=== PATIENT | female | born 1945 | race Caucasian/White ===

== ENCOUNTER → 2017-03-22 | Outpatient (CLI) | payer OTHER ==
[~2017-03-22] MED LIST: ASPI-113 PO; ATEN-173 PO; CLB/200 PO; ENAL1TAB31 PO; FLAX100025 PO; HCTZ PO; HYDR-1838 PO; METF1000 PO; MONT1TAB3 PO; MULT-845 PO; OMEG1360 PO; PROBCAP8 PO; TAPE1TAB9 PO; [UNRECOGNIZED DRUG - OTHER] PO
[2017-03-22 14:12] LABS: SYNOVIAL FLUID APPEARANCE HAZY; SYNOVIAL FLUID COLOR YELLOW; SYNOVIAL FLUID MONONUC RELAT 55.3 %; SYNOVIAL FLUID POLYNUC RELAT 44.7 %
== END | disposition home or self-care (01) ==
LOC: C.LAB 11:59
DX: M16.11 Unilateral primary osteoarthritis, right hip (principal)

== ENCOUNTER 2017-05-30 04:59 | Day surgery (SDC) | payer OTHER ==
[2017-05-08 15:17] VITALS: BMI 34.0
--- NOTE | 2017-05-08 16:09 | PAT Medication Instructions ---
Service Date May 08, 2017. Current Home Medication List Aspirin (Aspirin Ec), 81 MG PO QPM Atenolol (Tenormin), 25 MG PO QAM Coconut Oil (Coconut Oil Organic), 1 TAB PO BID Coenzyme Q10 (Ubidecarenone) (Coq10), 1 TAB PO QAM Enalapril Maleate (Vasotec), 20 MG PO QAM Hydrochlorothiazide (Hydrochlorothiazide), 12.5 MG PO QAM Metformin HCl (Metformin HCl), 2 TAB PO BID Multiple Vitamins W/ Minerals (Centrum Silver Adult 50+), 1 TAB PO QAM Naproxen (Aleve), 220 MG PO DAILY PRN for Pain Vanzant-3 Fatty Acids (Fish Oil), 1 CAP PO BID Pravastatin (Pravachol ), 20 MG PO HS Probiotic Product (Probiotic Pearls), 1 CAP PO QAM Sertraline (Zoloft), 1.5 TAB PO QAM Specialty Vitamins Products (Green Source), 1 TAB PO QAM Medication Instructions For Your Scheduled Surgery - Check with surgeon for instructions: Naproxen (Aleve), 220 MG PO DAILY PRN for Pain Aspirin (Aspirin Ec), 81 MG PO QPM - Hold the following medications 2 weeks prior to surgery: Specialty Vitamins Products (Green Source), 1 TAB PO QAM Vanzant-3 Fatty Acids (Fish Oil), 1 CAP PO BID Coconut Oil (Coconut Oil Organic), 1 TAB PO BID Coenzyme Q10 (Ubidecarenone) (Coq10), 1 TAB PO QAM - Hold the following medications 48 hours prior to surgery: Metformin HCl (Metformin HCl), 2 TAB PO BID - Hold the following medications the morning of surgery: Probiotic Product (Probiotic Pearls), 1 CAP PO QAM Hydrochlorothiazide (Hydrochlorothiazide), 12.5 MG PO QAM Enalapril Maleate (Vasotec), 20 MG PO QAM Multiple Vitamins W/ Minerals (Centrum Silver Adult 50+), 1 TAB PO QAM - Take the following medications the morning of surgery with a sip of water: Sertraline (Zoloft), 1.5 TAB PO QAM Atenolol (Tenormin), 25 MG PO QAM - Take the following medications as scheduled the night before surgery: Pravastatin (Pravachol ), 20 MG PO HS If you have any questions please call us at [phone] or [phone] or [phone]
[2017-05-08 16:25] LABS: BASO % 0.3 %; BASO ABS # 0.03 K/uL (0-0.2); COMPLETE YES; EOS % 4.7 %; HEMATOCRIT 34.6 % (37-47); IG% 0.6 %; LYMPH % 21.8 %; LYMPH ABS # 2.05 K/uL (1.2-3.4); MEAN CELL VOLUME 96.1 fL (80-100); MEAN CORPUSCULAR HEMOGLOBIN 31.4 pg (25-34); MEAN CORPUSCULAR HGB CONC 32.7 g/dl (32-36); MEAN PLATELET VOLUME 8.8 fL (7.4-10.4); MONO % 8.4 %; NEUT % 64.2 %; PLATELET COUNT 273 K/uL (130-400); WHITE BLOOD COUNT 9.42 K/uL (4.8-10.8)
[2017-05-08 16:37] LABS: INR 0.9 (0.9-1.1); PROTHROMBIN TIME (PATIENT) 9.7 SECONDS (9.0-12.0)
[2017-05-08 16:37] LABS: URINE APPEARANCE CLEAR (CLEAR); URINE BILIRUBIN NEG (NEG); URINE COLOR YELLOW; URINE NITRITE NEG (NEG); UROBILINOGEN NEG (NEG); ZZUR CULT IF INDIC CLEAN CATCH NO
[2017-05-08 16:43] LABS: BUN/CREATININE RATIO 14.4 (10-20); CREATININE 1.06 mg/dl (0.60-1.20); POTASSIUM 3.6 mmol/L (3.5-5.1)
--- NOTE | 2017-05-08 16:50 | DIAGNOSTIC IMAGING REPORT ---
TWO VIEW CHEST CLINICAL HISTORY: Preoperative examination. FINDINGS: PA and lateral chest radiographs are compared to study dated 07/09/2013. The cardiomediastinal silhouette is unremarkable. The lungs and pleural spaces are clear. Biapical scarring is observed. There is no pneumothorax. The skeletal structures are osteopenic. Degenerative change is noted in the thoracic spine. IMPRESSION: No active disease in the chest. Electronically signed by: London Srinivasan M.D. 05/08/2017 4:48 PM Dictated Date/Time: 05/08/2017 4:40 PM
[2017-05-08 16:53] LABS: MANUAL MICROSCOPIC REQUIRED? NO; REVIEW REQ? NO
--- NOTE | 2017-05-29 09:45 | HISTORY & PHYSICAL EXAMINATION ---
DATE OF ADMISSION: 05/30/2017 CHIEF COMPLAINT: Right knee pain. HISTORY OF PRESENT ILLNESS: The patient is a 71-year-old female who had a right total knee arthroplasty approximately 3-1/2 years ago by another physician. She was recently referred to us for evaluation of ongoing right knee pain and disability. X-rays were essentially negative. She has had blood work, a knee aspiration, and a bone scan, which are essentially negative. She is now scheduled for right knee arthroscopy and debridement of hypertrophic scar. PAST MEDICAL HISTORY: Hypertension, hypercholesterolemia, type 2 diabetes, and osteoarthritis. PAST SURGICAL HISTORY: Knee replacement as above and hysterectomy. MEDICATIONS: Hydrochlorothiazide 12.5 mg daily, atenolol daily, Zoloft daily, metformin 500 mg twice daily, enalapril daily, pravastatin daily, aspirin 81 mg daily, fish oil daily, and coconut oil daily. ALLERGIES: No known drug allergies. SOCIAL HISTORY AND REVIEW OF SYSTEMS: Noncontributory. PHYSICAL EXAMINATION: GENERAL: Well-nourished and well-developed elderly female, who appears her stated age. HEENT: Normocephalic and atraumatic. Extraocular movements intact. Oropharynx is pink and moist. NECK: Supple without adenopathy. LUNGS: Clear to auscultation bilaterally. HEART: Regular rate and rhythm. ABDOMEN: Soft, nontender, and nondistended. EXTREMITIES: The upper extremities are within normal limits. The right knee has a neutral alignment. She has a well-healed midline scar from her previous arthroplasty. Her range of motion is from 0-120 degrees. X-RAYS: X-rays were reviewed. She has a Perez & Nephew type total knee in place. It appears well aligned and well fixed on all views. She had a bone scan, which was negative for evidence of infection and loosening. Her sed rate and CRP were mildly elevated, but her knee aspiration was negative. Cell count normal. ASSESSMENT: Right knee pain, status post previous knee arthroplasty. PLAN: Risks versus benefits were discussed. Consent was obtained. We will proceed with right knee arthroscopy and debridement of hypertrophic scar as indicated.
[~2017-05-30] VITALS: Ht 160 cm; Wt 88.5 kg
[~2017-05-30 04:59] MED LIST changes: -ASPI-113 PO; +ASPI81TA28 PO; -CLB/200 PO; +COCO1CAP PO; +COEN100C7 PO; -FLAX100025 PO; +GLC500 PO; -HCTZ PO; -HYDR-1838 PO; +HYDR25TA5 PO; -METF1000 PO; -MONT1TAB3 PO; +NAPR1TAB9 PO; +PRAV20TA PO; +SERT50TA PO; +SPECTAB PO; -TAPE1TAB9 PO; -[UNRECOGNIZED DRUG - OTHER] PO
[2017-05-30 05:29] VITALS: BP 129/76; PULSE 58; TEMP 37; O2SAT 98; Ht 160 cm; Wt 88.5 kg
[2017-05-30] MEDS ORDERED: CEFAZOLIN 2000MG IV PUSH 10 ML IV SCH (06:00)
[2017-05-30] MEDS ORDERED: LACTATED RINGER'S 1000ML 1,000 ML IV SCH (06:00)
[2017-05-30] MEDS ORDERED: BUPIVACAINE 0.25% 30 ML VIAL ONE (06:18)
[2017-05-30] MEDS ORDERED: BUPIVACAINE 0.5 % 5 MG/1 ML PF 10ML VIAL ONE (06:18)
[2017-05-30] MEDS ORDERED: MIDAZOLAM HCL 1 MG/ML 2ML VIAL ONE (06:33)
[2017-05-30] MEDS ORDERED: DEXAMETHASONE SOD INJ 4 MG/ML VIAL ONE (06:33)
[2017-05-30] MEDS ORDERED: FENTANYL CITRATE INJ 50 MCG/1 ML 2 ML VIAL ONE (06:33)
[2017-05-30] MEDS ORDERED: LIDOCAINE HCL 2% 2 ML VIAL (20MG/ML) ONE (06:33)
[2017-05-30] MEDS ORDERED: PROPOFOL IV EMULSION 10 MG/ML 20 ML VIAL IV ONE ×2 (06:33→07:30)
[2017-05-30] MEDS ORDERED: ONDANSETRON INJ 2 MG/ML 2 ML VIAL ONE (06:33)
[2017-05-30] MEDS ORDERED: BUPIVACAINE/EPINEPHRINE 0.5% MPF 1:200,000 30 ML VIAL ONE (06:56)
--- NOTE | 2017-05-30 06:59 | History & Physical Bridge Note ---
H&P Re-Evaluation Bridge Note: I have examined the patient, reviewed the History & Physical and in the interval since the performance of the History & Physical I have noted the following changes of clinical significance: No changes noted
[2017-05-30] MEDS ORDERED: ATROPINE SULFATE 0.1 MG/ML 5ML SYR IV PRN (07:15)
[2017-05-30] MEDS ORDERED: FENTANYL CITRATE INJ 50 MCG/1 ML 2 ML VIAL IV PRN (07:15)
[2017-05-30] MEDS ORDERED: HYDROmorphone INJ 1 MG/ML SYR IV PRN (07:15)
[2017-05-30] MEDS ORDERED: EpHEDrine SULFATE INJ 50 MG/ML AMP IV PRN (07:15)
[2017-05-30] MEDS ORDERED: ONDANSETRON INJ 2 MG/ML 2 ML VIAL IV PRN (07:15)
[2017-05-30] MEDS ORDERED: SODIUM CHLORIDE 0.9% 1000ML 1,000 ML IV SCH (07:17)
[2017-05-30] MEDS ORDERED: HYDR-5688 PO (07:20)
--- NOTE | 2017-05-30 07:21 | Discharge Instructions ---
Discharge Instructions Date of Service May 30, 2017. Visit Reason for Visit: Right Knee Arthrofibrosis Discharge Discharge Diagnosis / Problem: Right knee arthrofibrosis Discharge Goals Goal(s): Decrease discomfort, Improve function Activity Recommendations Activity Limitations: as noted below Weightbearing Status: Right weightbearing (as tolerated) Anesthesia . Post Anesthesia Instructions: If you have had General Anesthesia or IV Sedation: * Do not drive today. * Resume driving when surgeon permits. * Do not make important decisions or sign legal documents today. * Call surgeon for: 1. Temperature elevations greater than 101 degrees F. 2. Uncontrollable pain. 3. Excessive bleeding. 4. Persistent nausea and vomiting. 5. Medication intolerance (nausea, vomiting or rash). * For nausea and vomiting use only clear liquids such as: tea, soda, bouillon until nausea subsides, then gradually increase diet as tolerated. * If you have any concerns or questions, call your surgeon's office. If physician is unavailable and it is an emergency, call 911 or go to the nearest emergency room. . Instructions / Follow-Up Instructions / Follow-Up ACTIVITY RECOMMENDATIONS: * You may walk on the leg with or without crutches as comfort permits. * Bending of the knee should start at once. * Do not shower for 48 hours following surgery. SPECIAL CARE INSTRUCTIONS: * You may cleanse the skin adjacent to the small wounds with soap and water at the time of the first dressing change. * The application of an ice bag to the front and sides of the knee will decrease swelling and discomfort for the first 48 hours. * The small incisions may be sore and develop bruising. This bruising does not require any special care. SPECIAL PRECAUTIONS: * If you experience unusual pain unrelieved by prescriptions, temperature elevation (100 degrees F. or above) or progressive swelling or bleeding, you should contact our office at for further evaluation. * You may have been prescribed pain medication. If you experience nausea and/or fine skin rash, discontinue this medication and contact our office at for an alternate medication. DRESSING: * Dressing should be comfortable and absorb any leakage of fluid and/or blood. * The dressing may become moist or bloodstained. * Dressing may be removed 48 hours after surgery and bandaids placed over the small surgical incisions. If can be removed sooner if it becomes very soiled or loose. * Bandaids may be used over next several days as needed and can be discontinued when there is not further drainage from the wounds. FOLLOW UP VISIT: If appointment is not already scheduled: Please call [facility] to make a follow-up appointment for your surgery at . Diet Recommendations Recommended Home Diet: resume previous diet Pending Studies Studies pending at discharge: no Medical Emergencies . Who to Call and When: Medical Emergencies: If at any time you feel your situation is an emergency, please call 911 immediately. . Non-Emergent Contact Non-Emergency issues call your: Surgeon Call Non-Emergent contact if: temperature is above 101.5, your pain is not controlled, wound has increased drainage, wound has increased redness . . "Provider Documentation" section prepared by Clifford Cardona PA-C. . [facility] Drug Monitoring Program Search Results: patient reviewed within database, no issues identified
[2017-05-30] MEDS ORDERED: HYDROCODONE/ACETAMOPHEN 5/325MG TAB PO PRN (07:30)
[2017-05-30] MEDS ORDERED: OXYCODONE/ACETAMINOPHEN 5-325 TAB PO PRN (07:30)
--- NOTE | 2017-05-30 07:49 | [facility] Post Operative Brief Note ---
Immediate Operative Summary Operative Date May 30, 2017. Pre-Operative Diagnosis Right knee pain status post total knee arthroplasty Post-Operative Diagnosis right knee hypertrophic scar status post right total knee arthroplasty Procedure(s) Performed Right Knee Arthroscopic Excision of a Hypertropic Scar -status post Right Total Knee Arthroplasty Surgeon Dr. Rojas Tongue Trimmer Surgeon(s) none Estimated Blood Loss 10ml Findings hypertrophic scar right total knee Specimens none per surgeon Disposition Recovery Room / PACU
--- NOTE | 2017-05-30 08:02 | OPERATIVE REPORT ---
DATE OF OPERATION: 05/30/2017 PREOPERATIVE DIAGNOSIS: Painful right total knee. POSTOPERATIVE DIAGNOSIS: Hypertrophic scar, right total knee. PROCEDURE: Excision of hypertrophic scar, right total knee. SURGEON: Dr. Derrick Rojas. ANESTHESIA: General. COMPLICATIONS: None. DESCRIPTION OF PROCEDURE: Following induction of adequate general anesthesia, the patient's right leg was prepped and draped in usual sterile manner. Limb was exsanguinated with elevation and the tourniquet was inflated to 350 mmHg. The anterolateral portal was used for insertion of the arthroscope. Intraarticular elements were identified. The patella appeared to track normally; however, there was a significant amount of hypertrophic scar about the patella and suprapatellar pouch. This was noted for later debridement. A medial portal was established and there was found to be soft tissue positioned such that it was being pinched between the femoral and tibial components along the medial joint line. This was debrided using a 5.5 mm incisor blade. Next, the intercondylar notch was inspected and the post was found to be intact. A portion of the fat pad was debrided. The knee was brought to extension where significant hypertrophic scar both in the area of the suprapatellar pouch as well as about the patella was debrided. The lateral gutter was without significant hypertrophic scar. There being no additional arthroscopically amenable pathology, the arthroscope was removed. The knee was drained of excess fluid. Each arthroscopic portal was injected with 10 mL of 0.5% Marcaine with epinephrine. Wounds were closed using 4-0 nylon simple sutures. A sterile dressing of Xeroform, 4 x 4's, sterile Webril and double length Holger was applied. The patient tolerated the procedure well. I attest to the content of the Intraoperative Record and any orders documented therein. Any exception s are noted below.
--- NOTE | 2017-05-30 08:30 | Anesthesiology Progress Note ---
Anesthesia Post Op Note Date & Time May 30, 2017 at 08:30 Vital Signs Pain Intensity: 0 Vital Signs Past 12 Hours Date Time Temp Pulse Resp B/P (MAP) Pulse Ox O2 Delivery O2 Flow Rate FiO2 05/30/17 08:25 36.8 63 16 123/62 97 Room Air 05/30/17 08:15 68 16 117/63 98 Room Air 05/30/17 08:05 67 16 117/63 98 Oxymask 10 05/30/17 07:55 65 16 114/64 98 Oxymask 10 05/30/17 07:46 36. 65 16 123/66 99 Oxymask 10 05/30/17 05:29 37 58 20 129/76 (93) 98 Room Air Notes Mental Status: alert / awake / arousable, participated in evaluation Pt Amnestic to Procedure: Yes Nausea / Vomiting: adequately controlled Pain: adequately controlled Airway Patency, RR, SpO2: stable & adequate BP & HR: stable & adequate Hydration State: stable & adequate Anesthetic Complications: no major complications apparent
[2017-05-30 08:35] VITALS: BP 116/53; PULSE 77; TEMP 36.7; O2SAT 96
[2017-05-30 09:05] VITALS: BP 119/51; PULSE 68; O2SAT 96
[2017-05-30 09:35] VITALS: BP 131/57; PULSE 68; TEMP 36.9; O2SAT 97
== END 2017-05-30 10:35 | disposition home or self-care (01) ==
LOC: C.ACU 04:59
DX: L91.0 Hypertrophic scar (principal); Z96.651 Presence of right artificial knee joint; I10 Essential (primary) hypertension; E11.9 Type 2 diabetes mellitus without complications; E66.9 Obesity, unspecified; E78.00 Pure hypercholesterolemia, unspecified; Z79.899 Other long term (current) drug therapy; F41.9 Anxiety disorder, unspecified; F32.9 Major depressive disorder, single episode, unspecified; Z79.82 Long term (current) use of aspirin; Z90.710 Acquired absence of both cervix and uterus; Z68.34 Body mass index [BMI] 34.0-34.9, adult; Z87.891 Personal history of nicotine dependence; Z98.890 Other specified postprocedural states

== ENCOUNTER 2018-08-25 05:38 | Inpatient (IN) ==
--- NOTE | 2018-08-15 15:57 | PAT Medication Instructions ---
Medication Instructions Date of Service August 15, 2018 Home Medications B12 Injections 1 dose MONTHLY PRN Hydrocodone/Apap 5 - 325 mg PO UD PRN aspirin [Aspir-81] 81 mg PO HS atenolol 25 mg PO QAM cyclobenzaprine 5 mg PO BID PRN enalapril maleate 10 mg PO QAM fluticasone 1 spray INTRANASAL DAILY hydrochlorothiazide 25 mg PO QAM magnesium 250 mg PO QAM meloxicamm 15 mg PO QAM metformin 2 tab PO BID multivitamin 1 tab-cap PO QAM omega 4-nyj-din-fish oil [Fish Oil] 1 cap PO BID pravastatin 20 mg PO QPM sertraline 1.5 tab PO QAM Trulicity 1 injection subcut once weekly (Saturday) Continue as directed B12 Injections 1 dose MONTHLY PRN Trulicity 1 injection subcut once weekly (Saturday) ASK your surgeon for instructions meloxicam 15 mg PO QAM STOP taking 2 weeks before surgery omega 4-ctm-bai-fish oil [Fish Oil] 1 cap PO BID If surgery is within 2 weeks, stop taking as soon as possible. DO NOT take the morning of surgery enalapril maleate 10 mg PO QAM cyclobenzaprine 5 mg PO BID PRN hydrochlorothiazide 25 mg PO QAM magnesium 250 mg PO QAM multivitamin 1 tab-cap PO QAM metformin 2 tab PO BID Take morning of surgery With a small sip of water, OTHERWISE NOTHING TO EAT OR DRINK AFTER MIDNIGHT: Hydrocodone/Apap 5 - 325 mg PO UD PRN (if needed, may be taken up to four hours before surgery) atenolol 25 mg PO QAM fluticasone 1 spray INTRANASAL DAILY sertraline 1.5 tab PO QAM Take evening before surgery Hydrocodone/Apap 5 - 325 mg PO UD PRN (if needed) aspirin [Aspir-81] 81 mg PO HS cyclobenzaprine 5 mg PO BID PRN (if needed) metformin 2 tab PO BID pravastatin 20 mg PO QPM Other Notes If you have any questions please call us at [phone] or [phone] or [phone] or [phone]
--- NOTE | 2018-08-18 14:53 | Anesthesiology Consultation ---
Date of Service August 18, 2018 Assessment & Plan (1) Encounter for pre-operative examination: Plan: Routine cardiology visit 03/12/2018: "Abnormal stress test in 2013. Could be false positive. No anginal symptoms. Hypertension is well controlled, stable." HPI notes patient can climb a flight of stairs without difficulty, toward in [place] and walked a couple of miles without difficulty. She is to follow-up with them as needed. H/O DIFFICULT INTUBATION BSG AM DOS Chart Review Chart Review: Acceptable Risk for Surgery and Patient seen in Pre Admission Testing Teaching & Discussion Instructed NPO after midnight before surgery, except medications with 15 cc of water. Medication instructions provided according to the PAT guidelines. History Surgery Operation Date: 08/25/18 11:00 Proposed Procedures p Right Total Hip Arthroplasty - Derrick Rojas MD Height/Weight Height: 5 ft 3.5 in Weight: 83.915 kg Allergies Allergy/AdvReac Type Severity Reaction Status Date / Time No Known Allergies Allergy Verified 08/15/18 14:10 Medications Home Medications Medication Instructions Recorded Confirmed Last Taken B12 Injections 1 dose MONTHLY PRN 08/15/18 08/15/18 08/12/18 Hydrocodone/Apap 5 - 325 mg PO UD PRN 08/15/18 08/15/18 Unknown aspirin [Aspir-81] 81 mg PO HS 08/15/18 08/15/18 08/14/18 atenolol 25 mg PO QAM 08/15/18 08/15/18 08/15/18 cyclobenzaprine 5 mg PO BID PRN 08/15/18 08/15/18 08/15/18 enalapril maleate 10 mg PO QAM 08/15/18 08/15/18 08/15/18 fluticasone 1 spray INTRANASAL DAILY 08/15/18 08/15/18 08/15/18 hydrochlorothiazide 25 mg PO QAM 08/15/18 08/15/18 08/15/18 magnesium 250 mg PO QAM 08/15/18 08/15/18 08/15/18 meloxicam 15 mg PO QAM 08/15/18 08/15/18 08/15/18 metformin 2 tab PO BID 08/15/18 08/15/18 08/15/18 [id number]-vit K 1 tab-cap PO QAM 08/15/18 08/15/18 08/15/18 [Multi For Her] omega 4-exu-gop-fish oil [Fish Oil] 1 cap PO BID 08/15/18 08/15/18 08/15/18 pravastatin 20 mg PO QPM 08/15/18 08/15/18 08/14/18 sertraline 1.5 tab PO QAM 08/15/18 08/15/18 08/15/18 dulaglutide [Trulicity] 1 unit SUBCUT 08/18/18 Unknown Past Medical History Medical History Anemia "SLIGHT" DUE TO LOW B12 Anxiety Arthritis Diabetes A1C 7.0% 08/18/18 Difficult airway for intubation H/O GLIDESCOPE #4 with hysterectomy at [facility] (records scanned in). Fatty liver MENTIONED AFTER AN ULTRASOUND "LIVER ENZYMES ARE ALWAYS NORMAL" Hiatal hernia History of elevated antinuclear antibody (NARESH) History of kidney disease STAGE 2 History of neck problems NECK FOLLOWS CHIROPRACTOR FOR. POOR CERVICAL ROM. Hyperlipidemia Hypertension Past Family History Family History Mother Family history of AML (acute myeloid leukemia) Grandfather (Paternal) Family history of breast cancer Past Surgical History Surgical History History of arthroscopy of right knee History of colonoscopy History of hysterectomy History of sebaceous cyst REMOVED FOREHEAD History of surgical procedure on mouth LOWER LIP SKIN GROWTH REMOVED (INTERNAL LIP) History of total right knee replacement Past Anesthesia History Difficult Airway (h/o Glidescope #4 with hysterectomy) and No Family Hx of Anesthesia Complications R knee scope [facility] 2017 LMA #4, no issues noted. History of PONV No Motion Sickness Screening History of Motion Sickness: No Social History Smoking Status: Former smoker tobacco type: cigarettes Smoking cigarettes per day: QUIT MANY YEARS AGO Do You Dip or Chew Tobacco: No Hx Alcohol Use: Yes Alcohol type: wine alcohol intake frequency: a few times a week Alcohol Intake Frequency Comment: "SOCIAL" Hx Substance Use: No Exercise / Class Metabolic Activity III < 4 Walking/Shop/Light housework (using walker and cane at home, currently much more limited since stopping Mobic for surgery. Denies CP or SOB with ambulation.) Review of Systems Pt denies any recent chest pain, shortness of breath, palpitations, cough, fever or URI. Physical Exam Vital Signs BP: 100/65 P: 75bpm SPO2: 96% RA T: 98.3 F R: 16 ENMT Mouth: + dental restorations (few caps); no chipped teeth and no loose teeth Thyromental Distance: > or= 3.5 Finger Breadths (4) Mallampati Class: II Neck + thick neck and + limited neck extension (mildly limited extension) Respiratory normal respiratory effort Auscultation: lungs clear to auscultation bilaterally Cardiovascular Rate/Rhythm: regular rate and regular rhythm Heart Sounds: no murmur Vessels: no carotid bruit Extremities: no edema Testing Electrocardiogram Date: 08/18/18 Findings: + NSR @ (74) iRBBB. Chest X-Ray Date: 08/18/18 Findings: + NAD Echocardiogram Date: 02/11/14 EF: 72% The examination is adequate for the referrel indication. LV wall motion is normal. RV systolic function is normal. LV diastolic function normal. Mild AV sclerosis is present. Mild TR. No pulmonary HTN. Stress Test Date: 07/23/13 Type: DSE Dobutamine induced segmental wall motion abnormality. EKG changes and symptoms may suggest myocardial ischemia. Global LV systolic function is normal. Laboratory Results 08/18/18 15:16 08/18/18 15:16 Blood Type A Positive 08/18/18 15:16 Antibody Screen NEGATIVE 08/18/18 15:16 PT 9.7 Seconds (9.0-12.0) 08/18/18 15:16 INR 1.0 (0.9-1.1) 08/18/18 15:16 APTT 25.9 Seconds (21.0-31.0) 08/18/18 15:16 Hemoglobin A1c 7.0 % (4.5-5.6) H 08/18/18 15:16 Urine Color Yellow 08/18/18 Unknown Urine Appearance Clear (Clear) 08/18/18 Unknown Urine pH 5.0 (4.5-7.5) 08/18/18 Unknown Ur Specific [place] 1.021 (1.000-1.030) 08/18/18 Unknown Urine Protein Negative (Negative) 08/18/18 Unknown Urine Glucose (UA) Negative (Negative) 08/18/18 Unknown Urine Ketones Negative (Negative) 08/18/18 Unknown Urine Nitrite Negative (Negative) 08/18/18 Unknown Ur Leukocyte Esterase Negative (Negative) 08/18/18 Unknown 08/18/18 Unknown Urine Culture - Preliminary Urine,Clean Catch Pin-point growth present, reincubating.
--- NOTE | 2018-08-18 15:51 | XRay Report ---
XR chest Pre-admission PA/Lat CLINICAL HISTORY: Preoperative evaluation. COMPARISON STUDY: Chest radiograph May 08, 2017. FINDINGS: Lung volumes are normal. There is no pneumothorax or pleural effusion. There is no consolid ation or evidence for pulmonary edema. Cardiac size is normal. Mediastinal contours are normal. The a ppearance of the chest is unchanged. IMPRESSION: No acute cardiopulmonary findings. Electronically signed by: Ray Patel M.D. 08/18/2018 3:49 PM
[2018-08-18 15:53] LABS: Appearance Urine Clear (Clear); Bilirubin Urine Negative (Negative); Color Urine Yellow; Glucose Urine UA Negative (Negative); Ketones Urine Negative (Negative); Leukocyte Esterase Urine Negative (Negative); Nitrite Urine Negative (Negative); Protein Urine Negative (Negative); Specific Gravity Urine 1.021 (1.000-1.030); Urobilinogen Urine Negative (Negative)
[2018-08-18 15:59] LABS: Albumin Level 3.6 gm/dl (3.4-5.0); BUN Creatinine Ratio 15.2 (10-20); Calcium 8.9 mg/dl (8.5-10.1); Creatinine Clr Calc Pharmacy 55.2 ml/min; Est GFR (African American) 68.1; Est GFR (Non-African American) 58.8; Partial Thromboplastin Time 25.9 Seconds (21.0-31.0); Potassium 4.1 mmol/L (3.5-5.1); Prothrombin Time 9.7 Seconds (9.0-12.0)
[2018-08-18 16:11] LABS: Basophils # (auto) 0.04 K/uL (0-0.2); Basophils % (auto) 0.4 %; Eosinophils # (auto) 0.28 K/uL (0-0.5); Hematocrit (blood only) 35.6 % (37-47); Hemoglobin 11.7 g/dL (12.0-16.0); Immature Granulocytes # (auto) 0.02 K/uL (0.00-0.02); Immature Granulocytes % (auto) 0.2 %; Lymphocytes # (auto) 1.82 K/uL (1.2-3.4); Lymphocytes % (auto) 19.6 %; Mean Corpuscular Hgb Conc 32.9 g/dL (32-36); Mean Corpuscular Volume 95.4 fL (80-100); Mean Platelet Volume 9.5 fL (7.4-10.4); Monocytes # (auto) 0.69 K/uL (0.11-0.59); Monocytes % (auto) 7.4 %; Neutrophils # (auto) 6.44 K/uL (1.4-6.5); Neutrophils % (auto) 69.4 %; Platelet Count 229 K/uL (130-400); RDW Standard Deviation 44.9 fL (36.4-46.3); Red Blood Count 3.73 M/uL (4.2-5.4); White Blood Count 9.29 K/uL (4.8-10.8)
[2018-08-19 05:58] LABS: Estimated Average Glucose 154 mg/dl
--- NOTE | 2018-08-22 10:02 | History and Physical Report ---
DATE OF ADMISSION: 08/25/2018 CHIEF COMPLAINT: Right hip pain. HISTORY OF PRESENT ILLNESS: The patient is a 73-year-old female with known osteoarthritis about her right hip. She has had several intra-articular corticosteroid injections with some relief, but her recent x-rays showed severe advancement of osteoarthritis with complete loss of joint space and the patient now scheduled for right hip arthroplasty. PAST MEDICAL HISTORY: Type 2 diabetes, fatty liver, essential hypertension, depression, anemia with vitamin B12 deficiency. PAST SURGICAL HISTORY: Hysterectomy, knee replacement, breast surgery. MEDICATIONS: Flexeril 5 mg 2 times daily p.r.n., hydrochlorothiazide 25 mg daily, Singulair 10 mg daily, Trulicity injection as directed, Flonase nasal spray daily, Zoloft 50 mg one-half tablets daily, metformin 500 mg 2 tablets twice daily, pravastatin 20 mg at bedtime, Tenormin 25 mg daily, Vasotec 10 mg daily, meloxicam 7.5 mg daily, omega-3 fatty acids 1000 mg daily, Coenzyme Q10 daily, probiotic daily, aspirin 81 mg daily, coconut oil daily, multivitamin daily, buspirone 15 mg twice daily p.r.n. ALLERGIES: No known drug allergies. SOCIAL HISTORY AND REVIEW OF SYSTEMS: Noncontributory. PHYSICAL EXAMINATION: GENERAL: Well-nourished, well-developed elderly female who appears her stated age. HEENT: Normocephalic, atraumatic. Extraocular movements intact, oropharynx pink and moist. NECK: Supple without adenopathy. LUNGS: Clear to auscultation bilaterally. HEART: Regular rate and rhythm. ABDOMEN: Soft, nontender, nondistended. EXTREMITIES: The upper extremities are within normal limits. The right hip demonstrates limited range of motion. There is limitation of active and passive internal/external rotation with pain at end range. X-RAYS: X-rays were reviewed. She has severe osteoarthritis about the right hip with complete loss of the joint space. ASSESSMENT: Right hip degenerative joint disease. PLAN: Risks versus benefits were discussed, consent was obtained. The patient's primary care physician is Yelitza Urias PA-C. Will proceed with right total hip arthroplasty as indicated.
[2018-08-25] MEDS ORDERED: METOCLOPRAMIDE HCL 10 MG TABLET PO SCH (06:00)
[2018-08-25] MEDS ORDERED: CEFAZOLIN 2000MG 2,000 MG/15 ML SYR IV SCH (06:00)
[2018-08-25] MEDS ORDERED: dexAMETHasone 4 MG TAB PO SCH (06:00)
[2018-08-25] MEDS ORDERED: TRANEXAMIC ACID 1,000 MG **IV Pre-op IV SCH (06:00)
[2018-08-25] MEDS ORDERED: ACETAMINOPHEN 500 MG TAB PO SCH ×2 (06:00→14:00)
[2018-08-25] MEDS ORDERED: GABAPENTIN 300 MG PO SCH (06:00)
[2018-08-25] MEDS ORDERED: CeleBREX 200 MG CAP PO SCH (06:00)
[2018-08-25] MEDS ORDERED: ROPIVACAINE 0.5% HCL/PF 150 MG, BUPIVACAINE 0.5% MPF 30 ML, EPINEPHrine 30MG/30ML (OR U... INFIL SCH (06:00)
[2018-08-25] MEDS ORDERED: FAMOTIDINE 20 MG TAB PO SCH (06:00)
[2018-08-25] MEDS ORDERED: BUPIVACAINE/EPINEPHRINE 0.5% MPF 1:200,000 30 ML VIAL ONE (06:24)
[2018-08-25] MEDS ORDERED: DEXAMETHASONE SOD INJ 4 MG/ML VIAL ONE ×2 (06:24→08:01)
[2018-08-25] MEDS ORDERED: BUPIVACAINE 0.5 % 5 MG/1 ML PF 10ML VIAL ONE (06:24)
[2018-08-25] MEDS ORDERED: TRANEXAMIC ACID 1,000 MG **IV Intra-op IV SCH (06:30)
[2018-08-25] MEDS: LR 500ML BOLUS, THEN 15ML/HR IV SCH ×3 (06:31→18:21)
[2018-08-25] MEDS ORDERED: ORTHO JOINT ANESTHETIC ONE (06:56)
[2018-08-25] MEDS ORDERED: BACITRACIN INJ 50,000 UNIT VIAL ONE (06:56)
[2018-08-25] MEDS ORDERED: POVIDONE-IODINE OP SOLN 30 ML BTL ONE (06:56)
--- NOTE | 2018-08-25 07:00 | History & Physical Bridge Note ---
Date of Service August 25, 2018 History & Physical Bridge Note I have examined the patient, reviewed the History & Physical and in the interval since the performance of the History & Physical I have noted the following changes of clinical significance: no changes noted
[2018-08-25] MEDS ORDERED: fentaNYL citrate 100 MCG/2 ML VIAL ONE (07:01)
[2018-08-25] MEDS ORDERED: MIDAZOLAM HCL 1 MG/ML 2ML VIAL ONE ×2 (07:01→07:58)
[2018-08-25] MEDS ORDERED: ONDANSETRON INJ 2 MG/ML 2 ML VIAL IV PRN ×2 (07:02→10:27)
[2018-08-25] MEDS ORDERED: ATROPINE SULFATE 0.1 MG/ML 10ML SYR IV PRN (07:02)
[2018-08-25] MEDS ORDERED: fentaNYL citrate 100 MCG/2 ML VIAL IV PRN (07:02)
[2018-08-25] MEDS ORDERED: PHENYLEPHRINE 100MCG/ML 5ML SYR IV PRN (07:02)
[2018-08-25] MEDS ORDERED: ePHEDrine sulfate 50 MG/ML AMP IV PRN (07:02)
[2018-08-25] MEDS ORDERED: HYDROmorphone INJ 1 MG/ML SYRINGE IV PRN ×2 (07:02→10:27)
[2018-08-25] MEDS ORDERED: MEPERIDINE HCL 25 MG/ML CARP IV PRN (07:02)
[2018-08-25] MEDS ORDERED: LABETALOL HCL IV 5 MG/ML 20ML IV PRN (07:02)
[2018-08-25] MEDS ORDERED: ONDANSETRON INJ 2 MG/ML 2 ML VIAL ONE (08:01)
[2018-08-25] MEDS ORDERED: PROPOFOL IV EMULSION 10 MG/ML 20 ML VIAL IV ONE (08:01)
[2018-08-25] MEDS ORDERED: LIDOCAINE HCL 2% 2 ML VIAL/AMP(20MG/ML) INFIL ONE (08:01)
--- NOTE | 2018-08-25 08:42 | Operative Report ---
Post Operative Report Pre & Post Diagnosis DJD right hip Operation Date: 08/25/18 07:30 <No data on this case meets the specified criteria> Procedure DJD right hip Operation Date: 08/25/18 07:30 <No data on this case meets the specified criteria> Surgeon Derrick Rojas MD Vocal Music Instructor Dulce Estimated Blood Loss 100 Findings Consistent with Post-Op Diagnosis Specimens Femoral head Complications none Disposition Accompanied Patient To Recovery: No Disposition: Recovery Room Indications Hip pain Description of Procedure Patient was placed in the left lateral decubitus position and the right hip was prepped and draped in usual sterile manner. A Shamika Langenbeck incision was made to gain access to the hip subtenons tissue sharply dissected which causes hemostasis. Fascia was incised throughout the length wound and the short external rotators were divided from the posterior aspect of the femur using a artery. Piriformis was tagged with a #1 Vicryl. A T capsulotomy incision was made after gaining hemostasis and the hip was dislocated. The femoral neck was osteotomized at the appropriate level using the oscillating saw. The femoral head was removed. Attention was turned to the acetabulum with fibrous labrum and capsule removed. Sequential reamings were taken up to a size 52 which gave good exposure to subchondral bone. A 52 mm shell was impacted in position was held using single cancellous bone screw. The elevated posterior wall liner was impacted in position. Next attention was turned to the femur where a box osteotome was used to gain access to the femoral canal. A canal finder was utilized and sequential aspirins were taken up to a size #2 which gave good fit and fill. Trial reduction was carried out in size -2.5 with 127 neck length was chosen size to be used. The trial was removed the hip was irrigated and the final component was impacted in the position. It was relocated was found to be quite stable and the short external rotators were repaired to the greater trochanter using #1 Vicryl. Hip injection periarticular was utilized. Betadine soap was utilized. Fascia was closed using #1 Vicryl over Hemovac drain. Subcutaneous tissue was closed using 0 Dexon and the skin was closed was applied. Sterile dressing of Adaptic 4 x 4's ABDs foam tape was applied. Patient tolerated well. Mr. Clark was utilized for portion of the case including positioning prepping draping surgical assistance wound closure and dressing application. I attest to the content of the Intraoperative Record and any orders documented therein. Any exceptions are noted below.
--- NOTE | 2018-08-25 10:00 | Anesthesiology Progress Note ---
Date of Service August 25, 2018 Anesthesia Post Procedure Vital Signs Vital Signs: Temp Pulse Pulse Resp BP BP Pulse Ox 08/25/18 09:55 74 22 105/63 99 08/25/18 09:45 73 14 106/54 L 99 08/25/18 09:35 73 15 109/63 99 08/25/18 09:25 73 15 126/59 L 100 08/25/18 09:15 74 12 109/54 L 100 08/25/18 09:06 36.4 C L 75 23 114/61 98 08/25/18 06:33 36.8 C 69 20 126/78 98 Pain Intensity Right Leg: Pain Intensity: 0 Notes Mental Status: alert / awake / arousable Patient Amnestic to Procedure: Yes Nausea / Vomiting: adequately controlled Pain: adequately controlled Airway Patency, RR, SpO2: stable & adequate BP & HR: stable & adequate Hydration State: stable & adequate Neuraxial Anesthesia: was administered and sensory block is resolving Anesthetic Complications: no major complications apparent and Pt Satisfied with anesthetic care
--- NOTE | 2018-08-25 10:00 | XRay Report ---
SINGLE VIEW PELVIS; SINGLE VIEW RIGHT HIP CLINICAL HISTORY: Postoperative examination. FINDINGS: An AP portable view of the hips and pelvis with a crosstable lateral portable view of the r ight hip are obtained. A bipolar right hip arthroplasty is in near-anatomic alignment. A single corti jeny lag screw transfixes the acetabular cup. No acute fracture is identified. There are expected post operative changes overlying the right hip including subcutaneous gas, a surgical drain, and soft tiss ue swelling. Moderate arthritic changes noted in the left hip. IMPRESSION: Expected postoperative findings status post right hip arthroplasty. No acute fracture is seen. Electronically signed by: London Srinivasan M.D. 08/25/2018 9:59 AM
[2018-08-25] MEDS ORDERED: OXYCODONE HCL IR 5 MG TAB (IMMEDIATE RELEASE) PO PRN (10:27)
[2018-08-25] MEDS ORDERED: MAGNESIUM HYDROXIDE SUSP 30 ML UDC PO PRN (10:27)
[2018-08-25] MEDS ORDERED: METOCLOPRAMIDE HCL INJ 5 MG/ML 2 ML VIAL IV PRN (10:27)
[2018-08-25] MEDS ORDERED: ALUMINUM/MAGNESIUM SUSP 30 ML UDC PO PRN (10:27)
[2018-08-25] MEDS ORDERED: NALOXONE HCL 0.4 MG/1 ML VIAL/CARP IV PRN (10:27)
[2018-08-25] MEDS ORDERED: BISACODYL 10 MG SUPP PR PRN (10:27)
[2018-08-25] MEDS: SODIUM CHLORIDE 0.9% 1000ML 1,000 ML IV SCH ×2 (11:00→21:29)
[2018-08-25] MEDS: KETOROLAC TROMETHAMINE 15 MG/ML VIAL IV SCH ×3 (11:00→22:21)
[2018-08-25] MEDS ORDERED: PHARMACY GLYCEMIC MGMT CONSULT PRN (11:08)
[2018-08-25] MEDS ORDERED: LANTUS PER UNIT CHARGE SQ ONE (11:30)
[2018-08-25] MEDS: INSULIN ASPART 100 UNITS/ML 3 ML PEN SC SCH ×4 (13:27→23:57)
[2018-08-25] MEDS: CEFAZOLIN 2000MG 2,000 MG/15 ML SYR IV SCH ×2 (14:35→22:21)
--- NOTE | 2018-08-25 16:00 | Pharmacy Report ---
Glycemic Control Consultation - Date of Service August 25, 2018 - Scope Scope: Glycemic Pharmacist consulted by Clifford Cardona on [08-25-18] for glycemic control and to write orders per [facility] inpatient glycemic control protocol - Objective Weight: 85.474 kg Accuchecks BSG (last 24hrs): 08/25/18 08/25/18 08/25/18 06:22 09:29 12:32 POC Glucose 149 H 145 H 191 H HbA1c: Hemoglobin A1c 7.0 % (4.5-5.6) H 08/18/18 15:16 - Recent Pertinent Medications Outpatient Anti-diabetic Regimen: * Trulicity, metformin 1000 mg bid * A1c = [7.0] % [08/18/18] Risk Factors for Insulin Resistance: * Steroids: dxm 8 mg po, dxm 4 iv * Diet: T2DM - Assessment & Plan Assessment & Plan: ASSESSMENT: * Patient is a 73 year old female now s/p R hip arthroplasty. Type 2 diabetic managed at home on Trulicity and metformin. * PMH significant for B12 deficiency, anemia, htn, depression, fatty liver * Patient received steroids intraop - anticipate steroid induced hyperglycemia postop, therefore will utilize basal/bolus dosing PLAN FOR INPATIENT GLYCEMIC CONTROL: * Pt is maintained on oral antidiabetic agents as an outpatient * Oral agents are not recommended for inpatient use d/t drug interactions, changing PO intake, and difficulty titrating for acute hyper/hypoglycemia. ADA recommends re-initiating outpatient oral agents 1-2 days prior to discharge if/ when appropriate if they were held on admission. * Will hold oral agents for admission and utilize SQ basal bolus insulin regimen which is the recommended regimen for inpatient glycemic control. * Will initiate weight based insulin dosing for insulin mercy patient and titrate based on BSG trends. * Basal insulin * Lantus 15 units x 1 (~0.2 u/kg dose) * Bolus insulin * NovoLog per scale ACHS or Q6hrs while NPO - will add overnight checks for additional coverage * Goal Range: Low 110 mg/dL - High 140 mg/dL * Correction Factor: 20 mg/dL/unit * Nutritional / Prandial insulin per carb ratio of 1 unit per 6 grams CHO consumed * Please note that the plan above was derived based on current level of insulin resistance and hospital stress. These recommendations are appropriate for inpatient admission only. Plan of care upon discharge will need to be reassessed to avoid potential outpatient hypo/hyperglycemia. Thank you.
[2018-08-25] MEDS: FERROUS GLUCONATE 324 MG TAB PO SCH (17:06)
[2018-08-25] MEDS: ASCORBIC ACID 500 MG TAB PO SCH (17:06)
[2018-08-25] MEDS ORDERED: HYDROCODONE/ACETAMOPHEN 5/325MG TAB PO PRN (18:08)
[2018-08-25] MEDS: HYDROCODONE/ACETAMOPHEN 5/325MG TAB PO PRN (19:47)
[2018-08-25] MEDS: DOCUSATE SODIUM 100 MG CAP PO SCH (21:30)
[2018-08-25] MEDS: SENNA 8.6 MG TAB PO SCH (21:31)
[2018-08-25] MEDS: PRAVASTATIN SOD 20 MG TAB PO SCH (21:31)
[2018-08-25] MEDS: ASPIRIN 81 MG ECTAB PO SCH (21:32)
[2018-08-25] MEDS ORDERED: Nursing to Pharmacy Communication ONE (23:21)
[2018-08-26] MEDS ORDERED: INSULIN ASPART 100 UNITS/ML 3 ML PEN SC SCH
[2018-08-26] MEDS: INSULIN ASPART 100 UNITS/ML 3 ML PEN SC SCH ×5 (03:52→21:08)
[2018-08-26] MEDS: KETOROLAC TROMETHAMINE 15 MG/ML VIAL IV SCH (05:15)
[2018-08-26 06:06] LABS: Basophils # (auto) 0.01 K/uL (0-0.2); Basophils % (auto) 0.1 %; Eosinophils # (auto) 0.01 K/uL (0-0.5); Eosinophils % (auto) 0.1 %; Hematocrit (blood only) 28.8 % (37-47); Hemoglobin 9.5 g/dL (12.0-16.0); Immature Granulocytes # (auto) 0.04 K/uL (0.00-0.02); Immature Granulocytes % (auto) 0.3 %; Lymphocytes % (auto) 7.6 %; Mean Corpuscular Volume 93.8 fL (80-100); Mean Platelet Volume 8.9 fL (7.4-10.4); Monocytes # (auto) 0.97 K/uL (0.11-0.59); Monocytes % (auto) 7.4 %; Neutrophils # (auto) 11.12 K/uL (1.4-6.5); Neutrophils % (auto) 84.5 %; Platelet Count 243 K/uL (130-400); RDW Coefficient of Variation 12.9 % (11.5-14.5); RDW Standard Deviation 43.7 fL (36.4-46.3); Red Blood Count 3.07 M/uL (4.2-5.4); White Blood Count 13.15 K/uL (4.8-10.8)
[2018-08-26 06:37] LABS: BUN Creatinine Ratio 17.7 (10-20); Calcium 8.2 mg/dl (8.5-10.1); Est GFR (African American) 61.2; Est GFR (Non-African American) 52.8; Potassium 3.6 mmol/L (3.5-5.1)
--- NOTE | 2018-08-26 07:04 | Orthopedic Progress Note ---
Date of Service August 26, 2018 Assessment & Plan (1) Status post right hip replacement: 73 yo female stable POD #1 s/p right NIURKA 1. Med management 2. DVT prophylaxis- ASA, SCDs 3. PT/OT 4. D/C planning- home w/ HH Subjective Pt resting in bed, pain controlled, denies complaints Physical Exam 2 Vital Signs (Past 24 Hours): Last Vital Signs Temp 36.8 C 08/26/18 06:51 Pulse 74 08/26/18 06:51 Resp 18 08/26/18 06:51 BP 115/68 08/26/18 06:51 Pulse Ox 97 08/26/18 06:51 Physical Exam: Toes mobile, N/V/I, dressing and drain in place, thigh soft Results & Data Laboratory Results 08/26/18 08/26/18 08/26/18 Range/Units 05:48 05:48 03:50 WBC 13.15 H (4.8-10.8) K/uL RBC 3.07 L (4.2-5.4) M/uL Hgb 9.5 L (12.0-16.0) g/dL Hct 28.8 L (37-47) % MCV 93.8 (80-100) fL MCH 30.9 (25-34) pg MCHC 33.0 (32-36) g/dL RDW Std Deviation 43.7 (36.4-46.3) fL RDW Coeff of Lars 12.9 (11.5-14.5) % Plt Count 243 (130-400) K/uL MPV 8.9 (7.4-10.4) fL Immature Gran % (Auto) 0.3 % Neut % (Auto) 84.5 % Lymph % (Auto) 7.6 % [place] % (Auto) 7.4 % Eos % (Auto) 0.1 % Baso % (Auto) 0.1 % Immature Gran # (Auto) 0.04 H (0.00-0.02) K/uL Neut # (Auto) 11.12 H (1.4-6.5) K/uL Lymph # (Auto) 1.00 L (1.2-3.4) K/uL [place] # (Auto) 0.97 H (0.11-0.59) K/uL Eos # (Auto) 0.01 (0-0.5) K/uL Baso # (Auto) 0.01 (0-0.2) K/uL Sodium 138 (136-145) mmol/L Potassium 3.6 (3.5-5.1) mmol/L Chloride 103 (98-107) mmol/L Carbon Dioxide 26 (21-32) mmol/L Anion Gap 9.0 (3-11) BUN 19 H (7-18) mg/dl Creatinine 1.06 (0.6-1.2) mg/dl Est Cr Clr Drug Dosing 51.0 ml/min Est GFR ( Amer) 61.2 Est GFR (Non-Af Amer) 52.8 BUN/Creatinine Ratio 17.7 (10-20) Glucose 162 H (70-99) mg/dl POC Glucose 163 H (70-99) Calcium 8.2 L (8.5-10.1) mg/dl 08/25/18 08/25/18 08/25/18 Range/Units 23:54 20:54 17:13 WBC (4.8-10.8) K/uL RBC (4.2-5.4) M/uL Hgb (12.0-16.0) g/dL Hct (37-47) % MCV (80-100) fL MCH (25-34) pg MCHC (32-36) g/dL RDW Std Deviation (36.4-46.3) fL RDW Coeff of Lars (11.5-14.5) % Plt Count (130-400) K/uL MPV (7.4-10.4) fL Immature Gran % (Auto) % Neut % (Auto) % Lymph % (Auto) % [place] % (Auto) % Eos % (Auto) % Baso % (Auto) % Immature Gran # (Auto) (0.00-0.02) K/uL Neut # (Auto) (1.4-6.5) K/uL Lymph # (Auto) (1.2-3.4) K/uL [place] # (Auto) (0.11-0.59) K/uL Eos # (Auto) (0-0.5) K/uL Baso # (Auto) (0-0.2) K/uL Sodium (136-145) mmol/L Potassium (3.5-5.1) mmol/L Chloride (98-107) mmol/L Carbon Dioxide (21-32) mmol/L Anion Gap (3-11) BUN (7-18) mg/dl Creatinine (0.6-1.2) mg/dl Est Cr Clr Drug Dosing ml/min Est GFR ( Amer) Est GFR (Non-Af Amer) BUN/Creatinine Ratio (10-20) Glucose (70-99) mg/dl POC Glucose 169 H 213 H 172 H (70-99) Calcium (8.5-10.1) mg/dl 08/25/18 08/25/18 Range/Units 12:32 09:29 WBC (4.8-10.8) K/uL RBC (4.2-5.4) M/uL Hgb (12.0-16.0) g/dL Hct (37-47) % MCV (80-100) fL MCH (25-34) pg MCHC (32-36) g/dL RDW Std Deviation (36.4-46.3) fL RDW Coeff of Lars (11.5-14.5) % Plt Count (130-400) K/uL MPV (7.4-10.4) fL Immature Gran % (Auto) % Neut % (Auto) % Lymph % (Auto) % [place] % (Auto) % Eos % (Auto) % Baso % (Auto) % Immature Gran # (Auto) (0.00-0.02) K/uL Neut # (Auto) (1.4-6.5) K/uL Lymph # (Auto) (1.2-3.4) K/uL [place] # (Auto) (0.11-0.59) K/uL Eos # (Auto) (0-0.5) K/uL Baso # (Auto) (0-0.2) K/uL Sodium (136-145) mmol/L Potassium (3.5-5.1) mmol/L Chloride (98-107) mmol/L Carbon Dioxide (21-32) mmol/L Anion Gap (3-11) BUN (7-18) mg/dl Creatinine (0.6-1.2) mg/dl Est Cr Clr Drug Dosing ml/min Est GFR ( Amer) Est GFR (Non-Af Amer) BUN/Creatinine Ratio (10-20) Glucose (70-99) mg/dl POC Glucose 191 H 145 H (70-99) Calcium (8.5-10.1) mg/dl
[2018-08-26] MEDS ORDERED: dexAMETHasone 10 MG in SYRINGE 0 ML IV SCH (08:00)
[2018-08-26] MEDS ORDERED: INSULIN GLARGINE SOLOSTAR 100 UNITS/ML 3 ML PEN SC ONE (08:15)
[2018-08-26] MEDS: FERROUS GLUCONATE 324 MG TAB PO SCH ×2 (08:56→18:15)
[2018-08-26] MEDS: DOCUSATE SODIUM 100 MG CAP PO SCH ×2 (08:56→21:18)
[2018-08-26] MEDS: ASCORBIC ACID 500 MG TAB PO SCH ×2 (08:56→18:15)
[2018-08-26] MEDS: hydroCHLOROthiazide 25 MG TAB PO SCH (08:57)
[2018-08-26] MEDS: FLUTICASONE PROPIONATE NA SPR 16 GM BTL SCH (08:57)
[2018-08-26] MEDS: ASPIRIN 81 MG ECTAB PO SCH ×2 (08:57→21:19)
[2018-08-26] MEDS: MAGNESIUM OXIDE 400 MG TAB PO SCH (08:58)
[2018-08-26] MEDS: CEROVITE ADV FORMULA TAB PO SCH (08:58)
[2018-08-26] MEDS: ENALAPRIL MALEATE 10 MG TAB PO SCH (08:58)
[2018-08-26] MEDS: ATENOLOL 25 MG TABLET PO SCH (08:58)
[2018-08-26] MEDS: SERTRALINE HCL 50 MG TABLET PO SCH (08:59)
--- NOTE | 2018-08-26 09:42 | Pharmacy Report ---
Pharmacy Glycemic Short Note 2 - Date of Service August 26, 2018 - Glycemic Short BSG Results (Last 24 hours): 08/25/18 08/25/18 08/25/18 12:32 17:13 20:54 Glucose POC Glucose 191 H 172 H 213 H 08/25/18 08/26/18 08/26/18 23:54 03:50 05:48 Glucose 162 H POC Glucose 169 H 163 H 08/26/18 08:20 Glucose POC Glucose 143 H OUTPATIENT ANTIDIABETIC REGIMEN: * Trulicity * Metformin * A1c = 7% on 08/18/18 ASSESSMENT: * 73yo T2DM female with well controlled diabetes as an outpatient per recent A1c * Outpatient medications on hold for admission and utilizing weight based SQ basal bolus insulin dosing regimen with Lantus + NovoLog. * Pt will need high stress/weight based dosing for IV dexamethasone given this morning. * Will taper insulin after hyperglycmeic effects of dxm dissipate to prep for discharge. PLAN FOR INPATIENT GLYCEMIC CONTROL: * Hold outpatient oral diabetes medications * Basal insulin * High stress dosing /: Lantus 35 units (0.4 units/kg) SQ x 1 this morning for dexamethasone IV * Low stress dosing 2/: Lantus 18 units SQ daily starting tomorrow. * Bolus insulin * NovoLog per scale ACHS or Q6hrs while NPO * Goal Range: Low 110 mg/dL - High 140 mg/dL * Correction Factor: 20 mg/dL/unit * Nutritional / Prandial insulin per carb ratio of 1 unit per 6 grams CHO consumed PLAN FOR DISCHARGE: * A1c is in target range. No changes needed to outpatient regimen.
[2018-08-26] MEDS: HYDROCODONE/ACETAMOPHEN 5/325MG TAB PO PRN ×2 (17:20→21:26)
[2018-08-26] MEDS: SENNA 8.6 MG TAB PO SCH (21:18)
[2018-08-26] MEDS: PRAVASTATIN SOD 20 MG TAB PO SCH (21:18)
[2018-08-27] MEDS: INSULIN ASPART 100 UNITS/ML 3 ML PEN SC SCH ×3 (00:38→08:08)
--- NOTE | 2018-08-27 07:00 | Orthopedic Progress Note ---
Date of Service August 27, 2018 Assessment & Plan (1) Status post right hip replacement: 73 yo female stable POD #2 s/p right NIURKA 1. Med management 2. DVT prophylaxis- ASA, SCDs 3. PT/OT 4. D/C planning- home w/ HH Subjective Pt resting in bed, pain controlled, denies complaints Physical Exam 2 Vital Signs (Past 24 Hours): Last Vital Signs Temp 36.8 C 08/27/18 06:12 Pulse 73 08/27/18 06:12 Resp 18 08/27/18 06:12 BP 123/70 08/27/18 06:12 Pulse Ox 98 08/27/18 06:12 Physical Exam: Toes mobile, N/V/I, Silverlon dressing in place, thigh soft, calf nontender
[2018-08-27] MEDS: FERROUS GLUCONATE 324 MG TAB PO SCH (07:59)
[2018-08-27] MEDS: ASCORBIC ACID 500 MG TAB PO SCH (08:00)
[2018-08-27] MEDS: FLUTICASONE PROPIONATE NA SPR 16 GM BTL SCH (08:01)
[2018-08-27] MEDS: ASPIRIN 81 MG ECTAB PO SCH (08:01)
[2018-08-27] MEDS: DOCUSATE SODIUM 100 MG CAP PO SCH (08:01)
[2018-08-27] MEDS: hydroCHLOROthiazide 25 MG TAB PO SCH (08:02)
[2018-08-27] MEDS: ENALAPRIL MALEATE 10 MG TAB PO SCH (08:02)
[2018-08-27] MEDS: MAGNESIUM OXIDE 400 MG TAB PO SCH (08:02)
[2018-08-27] MEDS: SERTRALINE HCL 50 MG TABLET PO SCH (08:02)
[2018-08-27] MEDS: CEROVITE ADV FORMULA TAB PO SCH (08:02)
[2018-08-27] MEDS: ATENOLOL 25 MG TABLET PO SCH (08:02)
[2018-08-27] MEDS ORDERED: INSULIN GLARGINE SOLOSTAR 100 UNITS/ML 3 ML PEN SC SCH ×2 (09:00)
[2018-08-27] MEDS: HYDROCODONE/ACETAMOPHEN 5/325MG TAB PO PRN (11:01)
--- NOTE | 2018-09-03 13:06 | Discharge Summary ---
CHIEF COMPLAINT: Right hip pain. Please see complete history and physical examination. HOSPITAL COURSE: The patient underwent right total hip arthroplasty without complication. She tolerated the procedure well and was discharged to recovery room in stable condition. Her postoperative course was relatively uneventful. Her postoperative pain was really well controlled with a combination of spinal anesthesia, intraoperative joint injection, IV, and oral pain medications. She was started on aspirin for DVT prophylaxis. She also utilized RENÉE stockings and SCDs for additional prophylaxis. Her H and H was stable and did not require transfusion. Surgical drain was discontinued by postop day 2, surgical dressing was changed prior to discharge and will remain in place for approximately 7 days postoperative. She tolerated the postop physical therapy reasonably well where she was ambulating and transferring appropriately. She was observing all total hip precautions. She was discharged home on postoperative day 2. She will continue her physical therapy at home. She will continue her aspirin for DVT prophylaxis and follow up in our office in approximately 10-14 days for her initial postop evaluation.
== END 2018-08-27 12:05 | disposition home health service (06) | DRG 470 ==
LOC: ASU 05:38 → 3E 09:10

== ENCOUNTER 2019-03-04 06:02 | Inpatient (IN) ==
--- NOTE | 2019-02-25 16:51 | PAT Medication Instructions ---
Medication Instructions Date of Service February 25, 2019 Home Medications Multi For Her 1 tab-cap PO QAM atenolol 25 mg PO QAM cyclobenzaprine 5 mg PO BID PRN enalapril maleate 10 mg PO QAM fluticasone propionate 1 spray INTRANASAL DAILY hydrochlorothiazide 25 mg PO QAM meloxicam 15 mg PO QAM metformin 2 tab PO BID omega 9-isy-nbh-fish oil [Fish Oil] 1 cap PO BID pravastatin 20 mg PO QPM sertraline 100 mg PO QAM Trulicity 1 unit SUBCUT WK aspirin [Aspirin Low Dose] 81 mg PO QPM coQ10 (ubiquinol) 100 mg PO QPM cyanocobalamin (vitamin B-12) 100 mcg IM MONTHLY hydrocodone-acetaminophen [Palisade] 0.5 tab PO Q6 lactobacillus combination no.4 [Probiotic] 3,000 mmu cells PO BID potassium gluconate 550 mg PO QAM Continue as directed Trulicity 1 unit SUBCUT WK cyanocobalamin (vitamin B-12) 100 mcg IM MONTHLY ASK your surgeon for instructions meloxicam 15 mg PO QAM STOP taking 2 weeks before surgery If surgery is within 2 weeks, stop taking as soon as possible. omega 4-iad-gur-fish oil [Fish Oil] 1 cap PO BID coQ10 (ubiquinol) 100 mg PO QPM DO NOT take the morning of surgery Multi For Her 1 tab-cap PO QAM cyclobenzaprine 5 mg PO BID PRN enalapril maleate 10 mg PO QAM hydrochlorothiazide 25 mg PO QAM metformin 2 tab PO BID lactobacillus combination no.4 [Probiotic] 3,000 mmu cells PO BID potassium gluconate 550 mg PO QAM Take morning of surgery With a small sip of water, OTHERWISE NOTHING TO EAT OR DRINK AFTER MIDNIGHT: atenolol 25 mg PO QAM fluticasone propionate 1 spray INTRANASAL DAILY sertraline 100 mg PO QAM hydrocodone-acetaminophen [Palisade] 0.5 tab PO Q6 (if needed, may be taken up to four hours before surgery) Take evening before surgery cyclobenzaprine 5 mg PO BID PRN fluticasone propionate 1 spray INTRANASAL DAILY metformin 2 tab PO BID pravastatin 20 mg PO QPM aspirin [Aspirin Low Dose] 81 mg PO QPM hydrocodone-acetaminophen [Palisade] 0.5 tab PO Q6 (if needed) lactobacillus combination no.4 [Probiotic] 3,000 mmu cells PO BID Other Notes If you have any questions please call us at [phone] or [phone] or [phone] or [phone]
--- NOTE | 2019-02-26 09:47 | Anesthesiology Consultation ---
Date of Service February 26, 2019 Assessment & Plan (1) Encounter for pre-operative examination: CHECK BSG AM DOS Chart Review Chart Review: Acceptable Risk for Surgery and Patient seen in Pre Admission Testing Teaching & Discussion Instructed NPO after midnight before surgery, except medications with 15 cc of water. Medication instructions provided according to the PAT guidelines. History Surgery Operation Date: 03/04/19 10:25 Proposed Procedures p L2-L4 Decompression and Fusion with Spinal Cord Monitoring - Vern Rodney DO Height/Weight Height: 5 ft 3.5 in Weight: 86.5 kg Allergies Allergy/AdvReac Type Severity Reaction Status Date / Time No Known Allergies Allergy Verified 02/24/19 15:29 Medications Home Medications Medication Instructions Recorded Confirmed Last Taken Multi For Her 1 tab-cap PO QAM 08/15/18 02/24/19 08/24/18 09:00 atenolol 25 mg PO QAM 08/15/18 02/24/19 08/25/18 04:00 cyclobenzaprine 5 mg PO BID PRN 08/15/18 02/24/19 08/24/18 18:00 enalapril maleate 10 mg PO QAM 08/15/18 02/24/19 08/24/18 09:30 fluticasone propionate 1 spray INTRANASAL DAILY 08/15/18 02/24/19 08/24/18 14:00 hydrochlorothiazide 25 mg PO QAM 08/15/18 02/24/19 08/24/18 09:00 meloxicam 15 mg PO QAM 08/15/18 02/24/19 08/15/18 metformin 2 tab PO BID 08/15/18 02/24/19 08/24/18 18:00 omega 7-wkx-aks-fish oil [Fish Oil] 1 cap PO BID 08/15/18 02/24/19 08/15/18 pravastatin 20 mg PO QPM 08/15/18 02/24/19 08/24/18 18:00 sertraline 100 mg PO QAM 08/15/18 02/24/19 08/25/18 04:00 Trulicity 1 unit SUBCUT WK 08/18/18 02/24/19 08/24/18 16:00 aspirin [Aspirin Low Dose] 81 mg PO QPM 02/24/19 02/24/19 Unknown coQ10 (ubiquinol) 100 mg PO QPM 02/24/19 02/24/19 Unknown cyanocobalamin (vitamin B-12) 100 mcg IM MONTHLY 02/24/19 02/24/19 Unknown hydrocodone-acetaminophen [Baudette] 0.5 tab PO Q6 02/24/19 02/24/19 Unknown lactobacillus combination no.4 3,000 mmu cells PO BID 02/24/19 02/24/19 Unknown [Probiotic] potassium gluconate 550 mg PO QAM 02/24/19 02/24/19 Unknown Past Medical History Medical History Anxiety Depression Diabetes A1C 7.0% 08/18/18 Fatty liver INCIDENTAL FINDING ON ULTRASOUND, NORMAL LFTs Hiatal hernia History of elevated antinuclear antibody (NARESH) History of kidney disease STAGE 2 History of neck problems NECK FOLLOWS CHIROPRACTOR FOR. POOR CERVICAL ROM. Hyperlipidemia Hypertension Neuropathy Feet. Osteoarthritis Exercise / Class Metabolic Activity II 4-5 Yardwork/Stairs/Walk up hill (Denies CP or SOB with 1 FOS) Past Family History Family History Mother Family history of AML (acute myeloid leukemia) Grandfather (Paternal) Family history of breast cancer Father Family history of diabetes mellitus Family/Other Family history of diabetes mellitus Past Surgical History Surgical History Difficult airway for intubation H/O GLIDESCOPE #4 with hysterectomy at [facility] (records scanned in). History of arthroscopy of right knee History of colonoscopy History of hysterectomy History of sebaceous cyst REMOVED FOREHEAD History of surgical procedure on mouth LOWER LIP SKIN GROWTH REMOVED (INTERNAL LIP) History of total right hip replacement History of total right knee replacement Past Anesthesia History Difficult Airway (h/o Glidescope) and No Family Hx of Anesthesia Complications History of PONV No Hx of PONV and No Hx of Motion Sickness Social History Smoking Status: Former smoker tobacco type: cigarettes Smoking cigarettes per day: QUIT MANY YEARS AGO Do You Dip or Chew Tobacco: No Smoking End Date: Hx Alcohol Use: Yes Alcohol type: wine alcohol intake frequency: a few times a month Hx Substance Use: No Review of Systems Pt denies any recent chest pain, shortness of breath, palpitations, cough, fever or URI. Physical Exam Vital Signs BP: 115/73 P: 78bpm SPO2: 95% RA T: 98.0 F R: 16 ENMT Mouth: + dental restorations (10 crowns total); no chipped teeth and no loose teeth Thyromental Distance: > or= 3.5 Finger Breadths (3.5) Mallampati Class: II Neck normal visual inspection and + limited neck extension (mildly limited) Respiratory normal respiratory effort Auscultation: lungs clear to auscultation bilaterally Cardiovascular Rate/Rhythm: regular rate and regular rhythm Heart Sounds: no murmur Extremities: no edema Testing Laboratory Results PT 9.5 Seconds (9.0-12.0) 02/26/19 10:07 INR 0.9 (0.9-1.1) 02/26/19 10:07 APTT 24.8 Seconds (21.0-31.0) 02/26/19 10:07 Blood Type A Positive 02/26/19 10:07 Antibody Screen NEGATIVE 02/26/19 10:07 01/05/19 WBC: 9.85 H/H: 12.2/36.7 PLATELETS: 253 SODIUM: 136 POTASSIUM: 3.8 CHLORIDE: 95 CO2: 29 BUN: 15 CREATININE: 0.8 GLUCOSE: 161 UA and culture: negative for bacteria Electrocardiogram Date: 08/18/18 Findings: + NSR @ (74) iRBBB. No significant change from 2012 EKG. Chest X-Ray Date: 08/18/18 Findings: + NAD Echocardiogram Date: 02/11/14 EF: 72% The examination is adequate for the referrel indication. LV wall motion is normal. RV systolic function is normal. LV diastolic function normal. Mild AV sclerosis is present. Mild TR. No pulmonary HTN. Stress Test Date: 07/23/13 Type: DSE Dobutamine induced segmental wall motion abnormality. EKG changes and symptoms may suggest myocardial ischemia. Global LV systolic function is normal.
[2019-02-26 11:10] LABS: INR 0.9 (0.9-1.1); Partial Thromboplastin Ratio 0.9; Partial Thromboplastin Time 24.8 Seconds (21.0-31.0); Prothrombin Time 9.5 Seconds (9.0-12.0)
[~2019-03-04 06:02] MED LIST changes: -ASPI81TA28 PO; -ATEN-173 PO; +CEFAZOLIN 2000MG 2,000 MG/15 ML SYR IV SCH; -COCO1CAP PO; -COEN100C7 PO; -ENAL1TAB31 PO; -GLC500 PO; -HYDR25TA5 PO; +LR 15ML/HR IV SCH; -MULT-845 PO; -NAPR1TAB9 PO; -OMEG1360 PO; -PRAV20TA PO; -PROBCAP8 PO; -SERT50TA PO; -SPECTAB PO
[2019-03-04] MEDS ORDERED: ONDANSETRON INJ 2 MG/ML 2 ML VIAL ONE (07:02)
[2019-03-04] MEDS ORDERED: DEXAMETHASONE SOD INJ 4 MG/ML VIAL ONE (07:02)
[2019-03-04] MEDS ORDERED: LIDOCAINE HCL 2% 2 ML VIAL/AMP(20MG/ML) INFIL ONE (07:02)
[2019-03-04] MEDS ORDERED: PROPOFOL IV EMULSION 10 MG/ML 20 ML VIAL IV ONE (07:02)
[2019-03-04] MEDS ORDERED: ROCURONIUM BROMIDE 10 MG/ML 5 ML VIAL ONE (07:02)
[2019-03-04] MEDS ORDERED: SUCCINYLCHOLINE CHLORIDE 20 MG/ML 10 ML VIAL ONE (07:03)
[2019-03-04] MEDS ORDERED: HYDROmorphone INJ 2 MG/ML SYR/VIAL ONE (07:03)
[2019-03-04] MEDS ORDERED: BACITRACIN INJ 50,000 UNIT VIAL ONE (07:03)
[2019-03-04] MEDS ORDERED: BUPIVACAINE/EPINEPHRINE 0.5% MPF 1:200,000 30 ML VIAL ONE (07:03)
--- NOTE | 2019-03-04 07:28 | History & Physical Bridge Note ---
Date of Service March 04, 2019 History & Physical Bridge Note I have examined the patient, reviewed the History & Physical and in the interval since the performance of the History & Physical I have noted the following changes of clinical significance: no changes noted
--- NOTE | 2019-03-04 07:29 | History & Physical Report ---
Date of Service March 04, 2019 Assessment & Plan (1) Spinal stenosis, lumbar region with neurogenic claudication: L2-L4 decompression and fusion Present on Admission?: Yes History of Present Illness Chief Complaint: Back and bilateral leg pain Primary Care Provider: Yelitza Urias PA-C This is a 73-year-old female presents with chronic persistent back and bilateral leg pain. After failing extensive course of nonoperative care is here for surgical intervention. Allergies Allergy/AdvReac Type Severity Reaction Status Date / Time No Known Allergies Allergy Verified 03/04/19 06:30 Home Medications Home Medications Medication Instructions Recorded Confirmed Type Multi For Her 1 tab-cap PO QAM 08/15/18 03/04/19 History atenolol 25 mg PO QAM 08/15/18 03/04/19 History cyclobenzaprine 5 mg PO BID PRN 08/15/18 03/04/19 History enalapril maleate 10 mg PO QAM 08/15/18 03/04/19 History fluticasone propionate 1 spray INTRANASAL DAILY 08/15/18 03/04/19 History hydrochlorothiazide 25 mg PO QAM 08/15/18 03/04/19 History meloxicam 15 mg PO QAM 08/15/18 03/04/19 History metformin 2 tab PO BID 08/15/18 03/04/19 History omega 4-cxq-euz-fish oil [Fish Oil] 1 cap PO BID 08/15/18 03/04/19 History pravastatin 20 mg PO QPM 08/15/18 03/04/19 History sertraline 100 mg PO QAM 08/15/18 03/04/19 History Trulicity 1 unit SUBCUT WK 08/18/18 03/04/19 History aspirin [Aspirin Low Dose] 81 mg PO QPM 02/24/19 03/04/19 History coQ10 (ubiquinol) 100 mg PO QPM 02/24/19 03/04/19 History cyanocobalamin (vitamin B-12) 100 mcg IM MONTHLY 02/24/19 03/04/19 History hydrocodone-acetaminophen [[place]] 0.5 tab PO Q6 02/24/19 03/04/19 History lactobacillus combination no.4 3,000 mmu cells PO BID 02/24/19 03/04/19 History [Probiotic] potassium gluconate 550 mg PO QAM 02/24/19 03/04/19 History Past Med/Surg History Family History Mother Family history of AML (acute myeloid leukemia) Grandfather (Paternal) Family history of breast cancer Father Family history of diabetes mellitus Family/Other Family history of diabetes mellitus Social History Preferred Language: Spanish Communication Ability: Effective Content Production Specialist Required: No Beliefs That Will Affect Care: None Current Living Situation: Spouse Feels Safe at Home: Yes Smoking Status: Former smoker Tobacco Type: cigarettes ; Cigarettes Per Day: QUIT MANY YEARS AGO ; Do You Dip or Chew Tobacco: No ; Smoking End Date: ; Second Hand Exposure: No ; Hx Alcohol Use: Yes Alcohol type: wine Hx Substance Use: No Physical Exam Physical Exam: Patient is alert and oriented neurologically intact. Results & Data Vital Signs (Past 12 Hours) Vital Signs Temp Pulse Resp BP Pulse Ox 03/04/19 06:30 37.1 C 74 18 139/77 97
[2019-03-04] MEDS ORDERED: ONDANSETRON INJ 2 MG/ML 2 ML VIAL IV PRN ×2 (08:54→11:47)
[2019-03-04] MEDS ORDERED: PROMETHAZINE HCL 12.5 MG in SODIUM CHLORIDE 0.9% 50 ML IV PRN ×2 (08:54→11:47)
[2019-03-04] MEDS ORDERED: NALOXONE HCL 0.4 MG/1 ML VIAL/CARP IV PRN ×2 (08:54→11:47)
[2019-03-04] MEDS ORDERED: LABETALOL HCL IV 5 MG/ML 20ML IV PRN (08:54)
[2019-03-04] MEDS ORDERED: FLUMAZENIL 0.1 MG/1 ML 10 ML VIAL IV PRN (08:54)
[2019-03-04] MEDS ORDERED: ePHEDrine sulfate 50 MG/ML AMP IV PRN (08:54)
[2019-03-04] MEDS ORDERED: ATROPINE SULFATE 0.1 MG/ML 10ML SYR IV PRN (08:54)
[2019-03-04] MEDS ORDERED: HYDROmorphone INJ 1 MG/ML SYRINGE IV PRN (08:54)
[2019-03-04] MEDS ORDERED: GLYCOPYRROLATE 0.2 MG/ML VIAL ONE (09:40)
[2019-03-04] MEDS ORDERED: NEOSTIGMINE METHYLSULFATE 1 MG/ML 10ML VIAL ONE (09:40)
[2019-03-04] MEDS ORDERED: PHENYLEPHRINE 100MCG/ML 5ML SYR ONE (10:06)
[2019-03-04] MEDS ORDERED: ePHEDrine sulfate 50 MG/ML AMP ONE (10:06)
--- NOTE | 2019-03-04 10:15 | Operative Report ---
Post Operative Report Pre & Post Diagnosis Operation Date: 03/04/19 07:45 Pre-Op Diagnosis: Lumbar spinal stenosis with neurogenic claudication Post-Op Diagnosis: Same Procedure Operation Date: 03/04/19 07:45 Actual Procedures #1 lumbar decompression with bilateral medial facetectomies foraminotomies L1-L2 L2-3 L3-4. #2 posterior spinal fusion L2-3 L3-4. #3 placement posterior instrumentation L2-3 L3-4. #4 interbody fusion L3-4. #5 placement of peek cage 11 x 22 mm L3-4 per #6 placement of local autograft in the posterior lateral gutters. #7 placement infuse collagen sponge, master graft in the posterior lateral gutters and ostial amp and interbody space. Surgeon Vern Rodney, Agency Trainer None Estimated Blood Loss 350 Findings See Below Patient is 5 foot 3 inches tall weighing over 84 kg with a BMI in excess of 32. The patient's body habitus did create a marked increase in technical difficulty requiring her deepest retractors and longer Kerrisons to perform the decompression and fusion. This added at least 25% increase in operative time. Specimens None Description of Procedure Patient was met with identified and informed consent obtained. She was then taken to the operative suite underwent intubation placed in a prone position the William table on top of the Stu frame. All bony prominences well-padded eyes inspected to ensure no external pressure placed upon. This point the lumbar spine was prepped and draped in the normal sterile fashion. Sharp dissection with the assistance of Bovie cautery was performed down to and exposing the lamina and transverse processes of L2-L3-L4 bilaterally. From a caudal to cephalad fashion complete laminectomy of L3 L2 and partial laminectomy of L1 was performed including bilateral medial facetectomies foraminotomies addressing severe stenosis. Pedicle screws were then placed in L2-L3-L4 bilaterally with assistance of fluoroscopy and the appropriate size pascale placed. By way of a transforaminal approach and left the discectomy of L3-4 was performed endplates curetted to subcortical bleeding bone and a 11 x 22 mm peek cage filled with osteo-amp bone graft tapped in position. The rods were then locked in final position bilaterally. The transverse processes of L2-L3-L4 burred to subcortical bleeding bone. Infuse collagen sponge master graft local autograft placed in the posterior lateral gutters. 15 round JEN drain inserted. The incision was then closed with 1 Vicryl in the fascia 2-0 Vicryl substantially and 4 Monocryl for final skin closure. Steri-Strip sterile dressings placed. Patient will continue to PACU stable condition. Please note spinal cord monitoring was utilized that the procedure no changes noted. I attest to the content of the Intraoperative Record and any orders documented therein. Any exceptions are noted below.
--- NOTE | 2019-03-04 10:17 | Fluoroscopy Report ---
FL lumbar spine 2-3V CLINICAL HISTORY: L2-L4, DECOMP, FUSION COMPARISON STUDY: FLUOROSCOPY TIME: 27 seconds. NUMBER OF FLUOROSCOPIC IMAGES: 2 FINDINGS: 2 intraoperative fluoroscopic spot images are provided for interpretation. Given the limite d field of view, accurate numbering is difficult. There are postsurgical changes of interbody fusion, and 3 level posterior pedicle screw fixation. By history, the discectomy and interbody fusion is at the L3-4 level with the pedicle screws being present at the L2-L4 levels. IMPRESSION: Intraoperative fluoroscopic spot images as described above. Electronically signed by: Victoriano Mejia M.D. 03/04/2019 10:15 AM
[2019-03-04] MEDS ORDERED: DO NOT ADMINISTER PNEUMOCOCCAL VACCINE PRN (11:47)
[2019-03-04] MEDS ORDERED: MAGNESIUM HYDROXIDE SUSP 30 ML UDC PO PRN (11:47)
[2019-03-04] MEDS ORDERED: LORazepam 0.5 MG TAB PO PRN (11:47)
[2019-03-04] MEDS ORDERED: ONDANSETRON 4 MG TAB PO PRN (11:47)
[2019-03-04] MEDS ORDERED: METOCLOPRAMIDE HCL INJ 5 MG/ML 2 ML VIAL IV PRN (11:47)
[2019-03-04] MEDS ORDERED: DO NOT ADMINISTER FLU VACCINE PRN (11:47)
[2019-03-04] MEDS ORDERED: CYCLOBENZAPRINE HCL 5 MG TAB PO PRN (11:47)
[2019-03-04] MEDS ORDERED: SOD PHOSPHATE/SOD BIPHOSPHATE ENEMA 132 ML BTL PR PRN (11:47)
[2019-03-04] MEDS ORDERED: LORazepam 0.5 MG/1 ML VIAL IV PRN (11:47)
[2019-03-04] MEDS ORDERED: FAMOTIDINE 20 MG TAB PO PRN (11:47)
[2019-03-04] MEDS ORDERED: HYDROmorphone INJ 0.5 MG/0.5 ML SYR IV PRN (11:47)
[2019-03-04] MEDS ORDERED: ACETAMINOPHEN 500 MG TAB PO PRN (11:47)
[2019-03-04] MEDS ORDERED: BISACODYL 10 MG SUPP PR PRN (11:47)
[2019-03-04] MEDS ORDERED: ACETAMINOPHEN 1,000 MG/100 ML VIAL IV PRN (11:47)
[2019-03-04] MEDS ORDERED: ALUMINUM/MAGNESIUM SUSP 30 ML UDC PO PRN (11:47)
[2019-03-04] MEDS ORDERED: HYDROCODONE/ACETAMOPHEN 5/325MG TAB PO SCH (12:00)
--- NOTE | 2019-03-04 12:04 | Anesthesiology Progress Note ---
Date of Service March 04, 2019 Anesthesia Post Procedure Vital Signs Vital Signs: Temp Pulse Pulse Resp BP BP Pulse Ox 03/04/19 11:40 36.8 C 76 14 110/66 97 03/04/19 11:10 36.6 C 77 12 117/60 96 03/04/19 11:00 74 12 118/61 99 03/04/19 10:50 76 16 119/60 99 03/04/19 10:40 76 16 131/67 100 03/04/19 10:30 73 16 131/63 98 03/04/19 10:23 36.9 C 71 16 93/62 L 96 03/04/19 06:30 37.1 C 74 18 139/77 97 Pain Intensity Bilateral Leg: Pain Intensity: 4 Bilateral Buttock: Pain Intensity: 0 Back: Pain Intensity: 2 Transfer of Care Handoff Completed per policy Notes Mental Status: alert / awake / arousable Patient Amnestic to Procedure: Yes Nausea / Vomiting: adequately controlled Pain: adequately controlled Airway Patency, RR, SpO2: stable & adequate BP & HR: stable & adequate Hydration State: stable & adequate Anesthetic Complications: no major complications apparent
[2019-03-04] MEDS: SODIUM CHLORIDE 0.9% 1000ML 1,000 ML IV SCH ×2 (13:19→20:03)
[2019-03-04] MEDS: KETOROLAC TROMETHAMINE 15 MG/ML VIAL IV SCH ×2 (13:19→17:39)
--- NOTE | 2019-03-04 13:49 | Consultation ---
Date of Consultation March 04, 2019 Assessment & Plan (1) Status post lumbar surgery: Post op day# 0 S/P L2-L4 decompression and fusion by Dr Ronel RAMIREZ#350ml Postop doing well -pain management per ortho -wound management per ortho -PT/OT as appropriate -DVT prophylaxis per ortho -incentive spirometry -monitor H&H for acute blood loss anemia (2) Diabetes mellitus, type II: A1c: 6.5 on 12/03/18 Random glucose: 170 -Pt currently on clear liquid diet -Monitor BSGs -Hold Metformin, Trulicity -Novolog sliding scale per protocol (3) Hypertension: Current BP 114/63 -Continue atenolol -Hold enalapril and HCTZ and re-evaluate BP in am (4) Hyperlipidemia: -Continue statin (5) Anxiety: (6) Depression: -Continue sertraline (7) Chronic anemia: Hx B12 deficiency. Last IM injection one week ago, receives monthly Hgb Baseline ~12 -monitor H&H DVT Prophylaxis -SCDs per ortho Disposition per primary service [facility] Pt was seen and care coordinated with Dr Martinez. See addendum Pt will be followed by Dr Ash starting 03/05/19 Thank you for this consultation. We will follow the patient with you during their hospital stay. You can reach a member of the [facility] Hospitalist Team 11/02 via pager @ [phone]. Supervising Physician Co-Signing Physician Notes Attending addendum The patient was seen and examined in medical floor He is a status post back surgery Does not have any pain but drowsy from the mid effect of medications Denies any significant symptoms On examination No apparent distress at rest Blood pressure noted to be in the lower side lower 100s Chest-clear to auscultate bilaterally Heart -S1-S2, regular Abdomenbenign Extremitiestrace edema bilateral Labs and imaging studies reviewed Has diabetes type 2, hypertension, hyperlipidemia and LACIE Review with assessment and plan as outlined above by SAMI Pathak Dr. History of Present Illness Reason for Consultation: Post op medical management Attending Physician: Vern Rodney DO History of Present Illness Pt is 73 y/o F with PMH DM II, HTN, HLD, chronic anemia, fatty liver seen in post op medical consultation s/p L2-L4 decompression and fusion today by Dr Rodney. Post op pt denies any pain currently and reports still sleepy from anesthesia. Has Herrera cath in place. Tolerating liquids for lunch. Denies fever/chills, N/V/D, METCALF, dizziness, neck pain, CP, SOB, cough, sore throat, choking, abdominal pain, extremity edema, rashes. Allergies Allergy/AdvReac Type Severity Reaction Status Date / Time No Known Allergies Allergy Verified 03/04/19 06:30 Home Medications Home Medications Medication Instructions Recorded Confirmed Type Multi For Her 1 tab-cap PO QAM 08/15/18 03/04/19 History atenolol 25 mg PO QAM 08/15/18 03/04/19 History cyclobenzaprine 5 mg PO BID PRN 08/15/18 03/04/19 History enalapril maleate 10 mg PO QAM 08/15/18 03/04/19 History fluticasone propionate 1 spray INTRANASAL DAILY 08/15/18 03/04/19 History hydrochlorothiazide 25 mg PO QAM 08/15/18 03/04/19 History meloxicam 15 mg PO QAM 08/15/18 03/04/19 History metformin 2 tab PO BID 08/15/18 03/04/19 History omega 3-lhk-vho-fish oil [Fish Oil] 1 cap PO BID 08/15/18 03/04/19 History pravastatin 20 mg PO QPM 08/15/18 03/04/19 History sertraline 100 mg PO QAM 08/15/18 03/04/19 History Trulicity 1 unit SUBCUT WK 08/18/18 03/04/19 History aspirin [Aspirin Low Dose] 81 mg PO QPM 02/24/19 03/04/19 History coQ10 (ubiquinol) 100 mg PO QPM 02/24/19 03/04/19 History cyanocobalamin (vitamin B-12) 100 mcg IM MONTHLY 02/24/19 03/04/19 History hydrocodone-acetaminophen [[place]] 0.5 tab PO Q6 02/24/19 03/04/19 History lactobacillus combination no.4 3,000 mmu cells PO BID 02/24/19 03/04/19 History [Probiotic] potassium gluconate 550 mg PO QAM 02/24/19 03/04/19 History Patient History Medical History Chronic anemia (Chronic) Diabetes mellitus, type II (Chronic) Hyperlipidemia (Chronic) Hypertension (Chronic) Anxiety (Chronic) History of elevated antinuclear antibody (NARESH) (Chronic) Hiatal hernia (Chronic) History of kidney disease (Chronic) STAGE 2 Fatty liver (Chronic) INCIDENTAL FINDING ON ULTRASOUND, NORMAL LFTs History of neck problems (Chronic) NECK FOLLOWS CHIROPRACTOR FOR. POOR CERVICAL ROM. Depression (Chronic) Osteoarthritis (Chronic) Neuropathy (Chronic) Feet. Surgical History Difficult airway for intubation (Chronic) H/O GLIDESCOPE #4 with hysterectomy at [facility] (records scanned in). History of hysterectomy (Chronic) History of total right knee replacement (Chronic) History of arthroscopy of right knee (Chronic) History of sebaceous cyst (Chronic) REMOVED FOREHEAD History of surgical procedure on mouth (Chronic) LOWER LIP SKIN GROWTH REMOVED (INTERNAL LIP) History of colonoscopy (Chronic) History of total right hip replacement (Chronic) Family History Mother Family history of AML (acute myeloid leukemia) Grandfather (Paternal) Family history of breast cancer Father Family history of diabetes mellitus Family/Other Family history of diabetes mellitus Social History Preferred Language: Jordanian Communication Ability: Effective Insulator Technician Required: No Beliefs That Will Affect Care: None Current Living Situation: Spouse Feels Safe at Home: Yes Smoking Status: Former smoker Tobacco Type: cigarettes ; Cigarettes Per Day: QUIT MANY YEARS AGO ; Do You Dip or Chew Tobacco: No ; Smoking End Date: ; Second Hand Exposure: No ; Hx Alcohol Use: Yes Alcohol type: wine Hx Substance Use: No Review of Systems Review of Systems: All systems reviewed & are unremarkable except as noted in HPI & below Physical Exam Physical Exam: General: no distress, overweight Head: normocephalic, atraumatic Eyes: conjunctiva non-injected, anicteric ENT: normal inspection external ears, nose, mucous membranes moist Neck: supple, trachea midline Lungs: clear, no respiratory distress, no wheezing/rhonchi/rales CV: RRR, no murmur, no pretibial edema Abd: normal BS, soft, non-tender Ext: no cyanosis, no calf tenderness; bilateral pedal pushes and pulls intact, distal pulses intact Neuro: A&O x 3, no focal deficits noted, normal affect Skin: warm, dry Results & Data Vital Signs (Past 12 Hours) Vital Signs Temp Pulse Pulse Resp BP BP Pulse Ox 03/04/19 13:40 37 C 79 16 102/62 98 03/04/19 12:40 77 15 114/63 99 03/04/19 12:04 80 16 110/68 98 03/04/19 11:40 36.8 C 76 14 110/66 97 03/04/19 11:10 36.6 C 77 12 117/60 96 03/04/19 11:00 74 12 118/61 99 03/04/19 10:50 76 16 119/60 99 03/04/19 10:40 76 16 131/67 100 03/04/19 10:30 73 16 131/63 98 03/04/19 10:23 36.9 C 71 16 93/62 L 96 03/04/19 06:30 37.1 C 74 18 139/77 97
[2019-03-04] MEDS ORDERED: CARBOHYDRATES FOR HYPOGLYCEMIA PO PRN (14:04)
[2019-03-04] MEDS ORDERED: GLUCOSE 10 TABS/TUBE PO PRN (14:04)
[2019-03-04] MEDS ORDERED: GLUCOSE 40% GEL 15 GM TUBE PO PRN (14:04)
[2019-03-04] MEDS ORDERED: GLUCAGON FOR INJ 1 MG VIAL SQ PRN (14:04)
[2019-03-04] MEDS ORDERED: DEXTROSE 50% 50 ML SYRINGE IV PRN (14:04)
[2019-03-04] MEDS: CEFAZOLIN 2000MG 2,000 MG/15 ML SYR IV SCH (15:59)
[2019-03-04] MEDS: INSULIN ASPART 100 UNITS/ML 3 ML PEN SC SCH ×2 (18:34→21:27)
[2019-03-04] MEDS: PRAVASTATIN SOD 20 MG TAB PO SCH (20:05)
[2019-03-04] MEDS: DOCUSATE SODIUM/SENNA 50/8.6MG TAB PO SCH (20:05)
[2019-03-04] MEDS: LACTOBACILLUS ACIDOPHILUS (FLORANEX) TAB PO SCH (20:05)
[2019-03-04] MEDS: OMEGA-3 (PURIFIED FISH OIL) 1 GM CAP PO SCH (20:05)
[2019-03-04] MEDS: ASPIRIN 81 MG ECTAB PO SCH (20:05)
[2019-03-04] MEDS ORDERED: NON-FORMULARY MEDICATION (Coq10 (Ubiquinol) 100 MG) PO SCH (21:00)
[2019-03-04] MEDS: INSULIN GLARGINE SOLOSTAR 100 UNITS/ML 3 ML PEN SC SCH (21:27)
[2019-03-04] MEDS: OXYCODONE HCL IR 5 MG TAB (IMMEDIATE RELEASE) PO PRN (23:26)
[2019-03-05] MEDS: CEFAZOLIN 2000MG 2,000 MG/15 ML SYR IV SCH (00:29)
[2019-03-05] MEDS: KETOROLAC TROMETHAMINE 15 MG/ML VIAL IV SCH ×2 (00:29→05:59)
[2019-03-05] MEDS: SODIUM CHLORIDE 0.9% 1000ML 1,000 ML IV SCH (02:47)
[2019-03-05] MEDS: POLYETHYLENE (MIRALAX) 17 GM PACK PO SCH ×3 (05:57→18:46)
[2019-03-05 08:23] LABS: Basophils # (auto) 0.01 K/uL (0-0.2); Basophils % (auto) 0.1 %; Eosinophils # (auto) 0.08 K/uL (0-0.5); Eosinophils % (auto) 0.7 %; Hematocrit (blood only) 26.7 % (37-47); Hemoglobin 9.1 g/dL (12.0-16.0); Immature Granulocytes # (auto) 0.04 K/uL (0.00-0.02); Immature Granulocytes % (auto) 0.3 %; Lymphocytes # (auto) 1.56 K/uL (1.2-3.4); Lymphocytes % (auto) 12.9 %; Mean Corpuscular Hgb Conc 34.1 g/dL (32-36); Mean Corpuscular Volume 93.4 fL (80-100); Mean Platelet Volume 8.8 fL (7.4-10.4); Monocytes # (auto) 0.88 K/uL (0.11-0.59); Monocytes % (auto) 7.2 %; Neutrophils # (auto) 9.57 K/uL (1.4-6.5); Neutrophils % (auto) 78.8 %; Platelet Count 246 K/uL (130-400); RDW Coefficient of Variation 13.5 % (11.5-14.5); RDW Standard Deviation 45.3 fL (36.4-46.3); Red Blood Count 2.86 M/uL (4.2-5.4); White Blood Count 12.14 K/uL (4.8-10.8)
--- NOTE | 2019-03-05 08:24 | Orthopedic Progress Note ---
Date of Service March 05, 2019 Assessment & Plan (1) Spinal stenosis, lumbar region with neurogenic claudication: This time will initiate physical therapy advance her bowel regimen anticipate discharge home in the next few days. Present on Admission?: Yes Subjective Back pain is controlled leg symptoms improved. Physical Exam Physical Exam: Patient has good strength testing appears comfortable. Results & Data Vital Signs (Past 12 Hours) Vital Signs Temp Pulse Pulse Resp BP BP Pulse Ox 03/05/19 07:51 36.8 C 80 18 106/61 97 03/05/19 03:03 36.9 C 79 16 99/53 L 97 03/04/19 23:05 36.7 C 78 16 133/73 99
[2019-03-05] MEDS: INSULIN ASPART 100 UNITS/ML 3 ML PEN SC SCH ×4 (08:39→21:40)
[2019-03-05] MEDS: INSULIN GLARGINE SOLOSTAR 100 UNITS/ML 3 ML PEN SC SCH ×2 (08:39→21:41)
[2019-03-05] MEDS: FLUTICASONE PROPIONATE NA SPR 16 GM BTL SCH (08:40)
[2019-03-05] MEDS: CEROVITE ADV FORMULA TAB PO SCH (08:41)
[2019-03-05] MEDS: OMEGA-3 (PURIFIED FISH OIL) 1 GM CAP PO SCH ×2 (08:41→20:23)
[2019-03-05] MEDS: LACTOBACILLUS ACIDOPHILUS (FLORANEX) TAB PO SCH ×2 (08:41→20:24)
[2019-03-05] MEDS: ATENOLOL 25 MG TABLET PO SCH (08:41)
[2019-03-05] MEDS: SERTRALINE HCL 50 MG TABLET PO SCH (08:42)
[2019-03-05] MEDS: OXYCODONE HCL IR 5 MG TAB (IMMEDIATE RELEASE) PO PRN ×4 (08:45→20:23)
[2019-03-05 08:51] LABS: BUN Creatinine Ratio 12.8 (10-20); Calcium 7.8 mg/dl (8.5-10.1); Creatinine Clr Calc Pharmacy 59.6 ml/min; Est GFR (African American) 74.6; Est GFR (Non-African American) 64.3; Potassium 3.7 mmol/L (3.5-5.1)
[2019-03-05] MEDS ORDERED: hydroCHLOROthiazide 25 MG TAB PO SCH (09:00)
[2019-03-05] MEDS ORDERED: ENALAPRIL MALEATE 10 MG TAB PO SCH (09:00)
--- NOTE | 2019-03-05 10:34 | Hospitalist Progress Note ---
Date of Service March 05, 2019 Assessment & Plan (1) Status post lumbar surgery: Post op day# 1 S/P L2-L4 decompression and fusion by Dr Rodney EBL#350ml JEN drain output #340ml Postop doing well -pain management per ortho -wound management per ortho -PT/OT as appropriate -DVT prophylaxis per ortho -incentive spirometry -bowel regimen -Hgb: 9.1, was 9.5 post-op yesterday and 11.7 pre-op (2) Diabetes mellitus, type II: A1c: 6.5 on 12/03/18 BSGs 133-173 past 24 hours -Pt currently on clear liquid diet -Monitor BSGs -Hold Metformin, Trulicity -Novolog, Lantus sliding scale per protocol (3) Hypertension: SBP low 100's -Continue atenolol -Hold enalapril and HCTZ and re-evaluate tomorrow (4) Hyperlipidemia: -Continue statin (5) Anxiety: (6) Depression: -Continue sertraline (7) Chronic anemia: Hx B12 deficiency. Last IM injection one week ago, receives monthly Hgb Baseline ~12 -monitor H&H DVT Prophylaxis -SCDs per ortho Disposition per primary service [facility] [place] [facility] Pt was seen and care coordinated with Dr Ash. See addendum Supervising Physician Co-Signing Physician Notes Attending Addendum: care coordinated with LINDA Ray please refer to her notes for full details, I agree with her notes patient seen and examined, records reviewed by myself as well on exam, patient seen resting in bedside chair, comfortable ambulating with no problems has mild sore throat noticed cheeks to be red, feels somewhat flushed but improving no other symptoms VS noted and reviewed oriented x3, not in distress, speaks in sentences with no effort nor accessory muscle use normal rate, regular rhythm, no murmurs clear breath sounds bilaterally non distended, soft, nontender no bipedal edema, erythema, warmth no neuro deficits WBC 12.14 Hg 9.1 Crea 0.90 ASSESSMENT AND PLAN s/p Back Surgery stable overall after surgery monitor Hg Anemia likely Acute Blood Loss monitor Hg maintain above 8 Hypertension BP on the low normal side hold Enalapril/HCTZ continue Metoprolol other diagnoses and plan of care as per LINDA Ray notes Flaco Ash MD Subjective Pt seen and examined. Sitting up in bedside chair. Reports pain to back controlled. Denies leg pain, paresthesias or weakness. Reports last night throat was sore from intubation and was clearing throat and trying to cough to make it feel better and states this morning symptoms improved. Still has Herrera cath. Reports passing flatus, no BM yet. Denies fever/chills, diaphoresis, N/V/ METCALF, dizziness, dysphagia, CP, SOB, abdominal pain, extremity edema, rashes. Review of Systems Review of Systems: All systems reviewed & are unremarkable except as noted in HPI & below Physical Exam Physical Exam: General: no acute distress, overweight Head: normocephalic, atraumatic Eyes: conjunctiva non-injected, anicteric ENT: normal inspection external ears, nose, mucous membranes moist Neck: supple, trachea midline Lungs: clear, no respiratory distress, no wheezing/rhonchi/rales CV: RRR, no murmur, no pretibial edema Abd: normal BS, soft, non-tender Ext: no cyanosis, no calf tenderness; flexion and extension at knees intact b ilaterally, pedal pushes and pulls intact, distal pulses intact, sensation to light touch intact Neuro: A&O x 3, no focal deficits noted, normal affect Skin: warm, dry Results & Data Vital Signs (Past 12 Hours) Vital Signs Temp Pulse Pulse Resp BP BP Pulse Ox 03/05/19 07:51 36.8 C 80 18 106/61 97 03/05/19 03:03 36.9 C 79 16 99/53 L 97 03/04/19 23:05 36.7 C 78 16 133/73 99 Laboratory Results Short CBC 03/05/19 Range/Units 08:06 WBC 12.14 H (4.8-10.8) K/uL Hgb 9.1 L (12.0-16.0) g/dL Hct 26.7 L (37-47) % Plt Count 246 (130-400) K/uL BMP 03/05/19 08:06 Sodium 141 Potassium 3.7 Chloride 107 Carbon Dioxide 27 BUN 12 Creatinine 0.90 Glucose 127 H Calcium 7.8 L
[2019-03-05] MEDS: PRAVASTATIN SOD 20 MG TAB PO SCH (20:24)
[2019-03-05] MEDS: DOCUSATE SODIUM/SENNA 50/8.6MG TAB PO SCH (20:24)
[2019-03-05] MEDS: ASPIRIN 81 MG ECTAB PO SCH (20:24)
[2019-03-06] MEDS: OXYCODONE HCL IR 5 MG TAB (IMMEDIATE RELEASE) PO PRN ×3 (06:06→17:39)
[2019-03-06 06:26] LABS: Hematocrit (blood only) 29.4 % (37-47); Hemoglobin 9.8 g/dL (12.0-16.0); Mean Corpuscular Hgb Conc 33.3 g/dL (32-36); Mean Corpuscular Volume 93.6 fL (80-100); Mean Platelet Volume 8.8 fL (7.4-10.4); Nucleated RBC # (auto) 0.02 K/uL (0-0); Nucleated RBC % (auto) 0.1 %; Platelet Count 253 K/uL (130-400); RDW Coefficient of Variation 13.8 % (11.5-14.5); RDW Standard Deviation 47.1 fL (36.4-46.3); Red Blood Count 3.14 M/uL (4.2-5.4); White Blood Count 13.46 K/uL (4.8-10.8)
[2019-03-06 06:58] LABS: BUN Creatinine Ratio 10.6 (10-20); Creatinine Clr Calc Pharmacy 61.6 ml/min; Est GFR (African American) 77.7; Potassium 3.7 mmol/L (3.5-5.1)
[2019-03-06] MEDS: ATENOLOL 25 MG TABLET PO SCH (07:30)
[2019-03-06] MEDS: FLUTICASONE PROPIONATE NA SPR 16 GM BTL SCH (07:31)
[2019-03-06] MEDS: OMEGA-3 (PURIFIED FISH OIL) 1 GM CAP PO SCH ×2 (07:31→20:57)
[2019-03-06] MEDS: SERTRALINE HCL 50 MG TABLET PO SCH (07:31)
[2019-03-06] MEDS: CEROVITE ADV FORMULA TAB PO SCH (07:31)
[2019-03-06] MEDS: LACTOBACILLUS ACIDOPHILUS (FLORANEX) TAB PO SCH ×2 (07:31→20:57)
[2019-03-06] MEDS: INSULIN GLARGINE SOLOSTAR 100 UNITS/ML 3 ML PEN SC SCH ×2 (07:32→21:00)
[2019-03-06] MEDS: INSULIN ASPART 100 UNITS/ML 3 ML PEN SC SCH ×4 (07:36→21:00)
[2019-03-06] MEDS: TRAMADOL HCL 50 MG TABLET PO PRN (07:54)
--- NOTE | 2019-03-06 14:42 | Orthopedic Progress Note ---
Date of Service March 06, 2019 Assessment & Plan (1) Spinal stenosis, lumbar region with neurogenic claudication: This time we will continue physical therapy monitor her JEN output. Possible discharge home tomorrow. Present on Admission?: Yes Subjective Patient's back pain is controlled leg symptoms markedly improved. Physical Exam Physical Exam: On exam she is in bed she is comfortable she is good strength testing. Results & Data Vital Signs (Past 12 Hours) Vital Signs Temp Pulse Resp BP Pulse Ox 03/06/19 06:55 37.3 C 82 16 113/64 93
--- NOTE | 2019-03-06 19:54 | Hospitalist Progress Note ---
Date of Service March 06, 2019 Assessment & Plan (1) Status post lumbar surgery: Post op day# 1 S/P L2-L4 decompression and fusion by Dr Ronel RAMIREZ#350ml Overall stable HGlobin stable at 9.8 DVT prophylaxis as per orthopedic surgery service (2) Diabetes mellitus, type II: A1c: 6.5 on 12/03/18 BSGs 133-173 past 24 hours -Monitor BSGs -Hold Metformin, Trulicity -Novolog, Lantus sliding scale per protocol BSG within acceptable range (3) Hypertension: BP well controlled -Continue atenolol -Hold enalapril and HCTZ for now (4) Hyperlipidemia: -Continue statin (5) Anxiety: (6) Depression: -Continue sertraline (7) Chronic anemia: Hx B12 deficiency. Last IM injection one week ago, receives monthly Hgb Baseline ~12 -monitor H&H DVT Prophylaxis -SCDs per ortho Disposition per primary service Follows with [facility] [place] for routine care Subjective Follow-up status post back surgery Patient reports pain is improving today compared to last night Ambulating today with no dizziness, shortness of breath, chest pain Sore throat improving No signs or symptoms Review of Systems Review of Systems: All systems reviewed & are unremarkable except as noted in HPI & below Physical Exam Physical Exam: General- oriented x 3, not in distress, speaks in sentences with no effort or accessory muscle use Eyes- anicteric Neck- no JVD Lungs- clear breath sounds bilaterally, no rales/wheezes Heart- normal rate, regular rhythm; no murmurs Abdomen- normal bowel sounds, nondistended, soft, nontender Extremities- no pretibial edema, no calf tenderness Neuro- alert, oriented x 3; no gross focal neurologic deficits Skin- warm & dry Results & Data Vital Signs (Past 12 Hours) Vital Signs Temp Pulse Resp BP Pulse Ox 03/06/19 15:11 36.9 C 80 16 119/65 94 Laboratory Results Laboratory Results - last 24 hr 03/05/19 03/06/19 03/06/19 20:51 06:05 06:05 WBC 13.46 H RBC 3.14 L Hgb 9.8 L Hct 29.4 L MCV 93.6 MCH 31.2 MCHC 33.3 RDW Std Deviation 47.1 H RDW Coeff of Lars 13.8 Plt Count 253 MPV 8.8 Absolute Nucleated RBC 0.02 H Nucleated RBC % (auto) 0.1 Sodium 136 Potassium 3.7 Chloride 103 Carbon Dioxide 26 Anion Gap 7.0 BUN 9 Creatinine 0.87 Est Cr Clr Drug Dosing 61.6 Est GFR ( Amer) 77.7 Est GFR (Non-Af Amer) 67.0 BUN/Creatinine Ratio 10.6 Glucose 143 H POC Glucose 186 H Calcium 8.0 L 03/06/19 03/06/19 03/06/19 06:52 12:03 17:33 WBC RBC Hgb Hct MCV MCH MCHC RDW Std Deviation RDW Coeff of Lars Plt Count MPV Absolute Nucleated RBC Nucleated RBC % (auto) Sodium Potassium Chloride Carbon Dioxide Anion Gap BUN Creatinine Est Cr Clr Drug Dosing Est GFR ( Amer) Est GFR (Non-Af Amer) BUN/Creatinine Ratio Glucose POC Glucose 151 H 134 H 127 H Calcium
[2019-03-06] MEDS: ASPIRIN 81 MG ECTAB PO SCH (20:57)
[2019-03-06] MEDS: PRAVASTATIN SOD 20 MG TAB PO SCH (20:57)
[2019-03-06] MEDS: DOCUSATE SODIUM/SENNA 50/8.6MG TAB PO SCH (20:58)
[2019-03-07] MEDS: OXYCODONE HCL IR 5 MG TAB (IMMEDIATE RELEASE) PO PRN (03:02)
[2019-03-07] MEDS: TRAMADOL HCL 50 MG TABLET PO PRN (07:30)
[2019-03-07] MEDS: CEROVITE ADV FORMULA TAB PO SCH (08:32)
[2019-03-07] MEDS: OMEGA-3 (PURIFIED FISH OIL) 1 GM CAP PO SCH (08:32)
[2019-03-07] MEDS: SERTRALINE HCL 50 MG TABLET PO SCH (08:32)
[2019-03-07] MEDS: LACTOBACILLUS ACIDOPHILUS (FLORANEX) TAB PO SCH (08:32)
[2019-03-07] MEDS: FLUTICASONE PROPIONATE NA SPR 16 GM BTL SCH (08:32)
[2019-03-07] MEDS: ATENOLOL 25 MG TABLET PO SCH (08:32)
[2019-03-07] MEDS: INSULIN GLARGINE SOLOSTAR 100 UNITS/ML 3 ML PEN SC SCH (08:50)
[2019-03-07] MEDS: INSULIN ASPART 100 UNITS/ML 3 ML PEN SC SCH (08:51)
--- NOTE | 2019-03-07 10:21 | Discharge Summary ---
Date of Service March 07, 2019 Admission HPI Per Admitting Provider This is a 73-year-old female presents with chronic persistent back and bilateral leg pain. After failing extensive course of nonoperative care is here for surgical intervention. Principal Diagnosis Lumbar spinal stenosis with neurogenic claudication Discharge Data Allergies Allergy/AdvReac Type Severity Reaction Status Date / Time No Known Allergies Allergy Verified 03/04/19 06:30 Consultations 03/04/19 11:47 Consult Case Management - Discharge Planning Routine Consult Hospitalist Routine Procedures Performed Operation Date: 03/04/19 07:45 Actual Procedures p L2-L4 Decompression and Fusion with Spinal Cord Monitoring(Not Applicable) - Vern Rodney DO Ordered Studies 03/04/19 07:45 FL fluoroscopy <1hr Routine FL lumbar spine 2-3V Routine Hospital Course (1) Spinal stenosis, lumbar region with neurogenic claudication: Patient underwent lumbar decompression fusion tolerated as well as taken to orthopedic for postoperative. Postop day and when she was up and ambulating well leg symptoms improved. Progressed the postop day #2. Postop day #3 JEN drain decreased probably pain well controlled subsequently discharged home. Discharge orders instructions from the chart for further review. Total Time Total Time Spent Total Time Spent (In Minutes): 20 minutes Discharge Plan Discharge Items Patient Disposition: Home - Self-Care Reason For Visit: Spinal Stenosis Discharge Diagnosis: lumbar stenosis Discharge Goals: Improve function Activity: Per 'Additional Instructions' section Non-emergency contact: Primary Care Provider Call non-emergency contact if: you have any medication questions Follow-up/Referrals: Yelitza Urias PA-C [Primary Care Provider] - Diet: Regular Addtl Provider Instructions: ACTIVITY RECOMMENDATIONS: SELF CARE INSTRUCTIONS AFTER THORACIC/LUMBAR FUSIONS 1. You may walk to your tolerance. It is good exercise for your legs and back. Expect some back and intermittent leg aches and pains. 2. You may perform "counter-top" level activities (make a sandwich, new with a project, etc.). 3. No bending or lifting of more than 10 pounds or back twisting of any nature (roll like a log when turning in bed). 4. You may ride in a car for 20-30 minutes at a time. No driving until after your first visit with your doctor. 5. Frequent changes of position and restricting sitting to 30 minutes at a time will help limit the amount of back spasms and stiffness you may experience. 6. You may discontinue the use of ambulatory aids (cane, crutches, etc.) once your strength and confidence allow. 7. You may injector assembler the shower and let water strike your incision when you arrive home at least once daily. Do not take a tub bath, sit in a hot tub or go into a swimming pool until after your first recheck in the office. SPECIAL CARE INSTRUCTIONS: VERY IMPORTANT TO READ AND REVIEW A. Your surgical incision has been closed with a cosmetic suture under the skin that will dissolve in about 6 weeks. In 14 days, you can use a pair of clean scissors and cut the suture that is left outside of the skin at the ends of your incision. 1. The small skin tapes can be removed 7 days after surgery if they have not fallen off by that point. 2. You may keep the wound open to air as much as possible to promote healing after post-op day number 5 unless told otherwise by your doctor. 3. If you think the wound looks like it is becoming infected (redness or worsening drainage) and/or you are experiencing fever, chill or worsening back pain and muscle spasms, contact the office so that we may evaluate you as soon as possible. B. Complications are uncommon, but please contact us if you have any signs or symptoms of: 1. wound infection (fever higher than 102.5 degrees F, redness, separation of wound, drainage, or increasing pain from the incision) 2. blood clots in legs (pain, swelling, redness and warmth in legs) 3. urinary tract infection (fever higher than 102.5 degrees F, burning upon urination or increased frequency of urination) 4. nerve problems (inability to walk on your toes or heels, numbness, loss of bowel or bladder control) 5. any other symptoms that concern you C. Please call the office at if you have any concerns or questions about your operation or recovery. D. No smoking! Smoking drastically decreases the chance of a solid fusion. E. Do not take any anti-inflammatory medications (Indocin, Advil, Motrin, Aspirin, Naprosyn, etc.) as these may inhibit the chance of a solid fusion. Tylenol is okay to take for pain. MANAGING PAIN AFTER SPINAL SURGERY 1. Narcotic medication is intended for short-term use and will be provided for surgical pain. Surgical pain usually lasts for a period of 4-6 weeks. Narcotic medication includes Percocet, Vicodin, Darvocet, Tylenol #3 or Lortab. 2. Longer-term pain is more appropriately treated with non-narcotic medication such as Tylenol ES. 3. Muscle spasm is not appropriately treated with narcotics. Muscle relaxers such as Soma, Flexeril or Skelaxin can be used along with Tylenol ES. 4. Remember that we all live with some "aches and pains". This is not unusual or uncommon after an injury or as we get older. a. Back pain is expected and may include muscle spasms for 4 to 6 weeks after surgery. The pain should gradually improve. If the pain worsens for no apparent reason, please contact the office. b. Intermittent leg pain may also be experienced and should not be concerned about unless it worsens for no apparent reason. If so, please contact the office. 5. We will provide appropriate medication within the normal guidelines of their prescribed use. We will also be very cautious and aware of potential abuse and extended duration of patients' medication needs. a. Pain medications are for your comfort and to assist with sleep and rest so that the tissue can heal. They are not provided in order to return to normal activity and should not be used through the day. To do so or worsening pain at night can result from ongoing tissue damage and development of tolerance to the prescribed medicine. 6. Please allow 2-3 days to process refills. Prescriptions will not be mailed but must be picked up at the office. FOLLOW UP VISIT: Keep your scheduled follow-up appointment. Any questions, please call the office at . Prescriptions: New tramadol 50 mg Tablet 50 mg PO Q4H PRN (Reason: Pain, Moderate) Qty: 30 RF: 0 oxycodone 5 mg Tablet 5 mg PO Q4H PRN (Reason: Pain, Severe) Qty: 30 RF: 0 Continued metformin 500 mg Tablet 2 tab PO BID RF: 0 enalapril maleate 10 mg Tablet 10 mg PO QAM RF: 0 meloxicam 15 mg Tablet 15 mg PO QAM RF: 0 atenolol 25 mg Tablet 25 mg PO QAM RF: 0 pravastatin 20 mg Tablet 20 mg PO QPM RF: 0 hydrochlorothiazide 25 mg Tablet 25 mg PO QAM RF: 0 fluticasone propionate 50 mcg/actuation [place],Suspension 1 spray INTRANASAL DAILY RF: 0 sertraline 50 mg Tablet 100 mg PO QAM RF: 0 omega 8-zty-ajg-fish oil [Fish Oil] 1,000 mg (120 mg-180 mg) Capsule 1 cap PO BID RF: 0 Multi For Her 18 mg iron-600 mcg-40 mcg Capsule 1 tab-cap PO QAM RF: 0 cyclobenzaprine 5 mg Tablet 5 mg PO BID PRN (Reason: Muscle Pain) RF: 0 Trulicity 0.75 mg/0.5 mL Pen Injector 1 unit subcut WK RF: 0 aspirin [Aspirin Low Dose] 81 mg Tablet,Delayed Release (Dr/Ec) 81 mg PO QPM RF: 0 potassium gluconate 550 mg (90 mg) Tablet 550 mg PO QAM RF: 0 coQ10 (ubiquinol) 100 mg Capsule 100 mg PO QPM RF: 0 Probiotic 3 billion cell Capsule 3,000 mmu cells PO BID RF: 0 hydrocodone-acetaminophen [[place]] 5-325 mg tablet 0.5 tab PO Q6 RF: 0 cyanocobalamin (vitamin B-12) 1,000 mcg/mL Solution 100 mcg IM MONTHLY RF: 0 Stand-Alone Forms: [facility] Discharge Orders: Discharge Order (Routine); Ordered 03/07/19 Ordered By: Vern Rodney Admission Data Admit Date/Time: 03/04/19 10:19 Attending Provider: Vern Rodney Admit Provider: Vern Rodney Primary Care Provider: Yelitza Urias Other Providers: Paul Thao Service: Surgical Services
== END 2019-03-07 13:12 | disposition home or self-care (01) | DRG 455 ==
LOC: ASU 06:02 → 3E 10:19

== ENCOUNTER 2020-09-10 07:13 | Observation (INO) ==
--- NOTE | 2020-08-31 10:36 | PAT Medication Instructions ---
Medication Instructions Date of Service August 31, 2020 Home Medications Multi For Her 1 tab-cap PO QAM atenolol 25 mg PO QAM cyclobenzaprine 5 mg PO BID PRN enalapril maleate 10 mg PO QAM fluticasone propionate 1 spray INTRANASAL DAILY hydrochlorothiazide 25 mg PO QAM meloxicam 15 mg PO QAM metformin 1 tab PO BID omega 8-fhh-ucn-fish oil [Fish Oil] 1 cap PO BID pravastatin 20 mg PO QPM sertraline 150 mg PO QAM Trulicity 1 unit SUBCUT WK Probiotic 3,000 mmu cells PO BID aspirin [Aspirin Low Dose] 81 mg PO QPM coQ10 (ubiquinol) 100 mg PO QPM cyanocobalamin (vitamin B-12) 100 mcg IM MONTHLY oxycodone-acetaminophen [Percocet] 1 tab PO BID PRN Continue as directed Trulicity 1 unit SUBCUT WK cyanocobalamin (vitamin B-12) 100 mcg IM MONTHLY ASK your surgeon for instructions meloxicam 15 mg PO QAM STOP taking 2 weeks before surgery If surgery is within 2 weeks, stop taking as soon as possible. omega 9-hxd-uzj-fish oil [Fish Oil] 1 cap PO BID coQ10 (ubiquinol) 100 mg PO QPM DO NOT take the morning of surgery Multi For Her 1 tab-cap PO QAM cyclobenzaprine 5 mg PO BID PRN enalapril maleate 10 mg PO QAM hydrochlorothiazide 25 mg PO QAM metformin 1 tab PO BID Probiotic 3,000 mmu cells PO BID Take morning of surgery With a small sip of water, OTHERWISE NOTHING TO EAT OR DRINK AFTER MIDNIGHT: atenolol 25 mg PO QAM fluticasone propionate 1 spray INTRANASAL DAILY sertraline 150 mg PO QAM oxycodone-acetaminophen [Percocet] 1 tab PO BID PRN (if needed, may be taken up to four hours before surgery) Take evening before surgery cyclobenzaprine 5 mg PO BID PRN (if needed) metformin 1 tab PO BID pravastatin 20 mg PO QPM Probiotic 3,000 mmu cells PO BID aspirin [Aspirin Low Dose] 81 mg PO QPM oxycodone-acetaminophen [Percocet] 1 tab PO BID PRN (if needed) Other Notes If you have any questions please call us at [phone] or [phone] or [phone] or [phone]
--- NOTE | 2020-09-01 13:19 | Anesthesiology Consultation ---
Date of Service September 01, 2020 Assessment & Plan (1) Encounter for pre-operative examination: - Per assessment on 09/01: Travel screen negative. No known COVID-19 positive contacts or current COVID-19 related symptoms. Surgeon arranging preop COVID testing. Awaiting results. - Hx glidescope intubation: S/P [facility] "Small mouth opening/anterior vocal cords." Glidescope #4 x 2 attempts, successful. Difficulty 1/2. Anesthesia records scanned in. Subsequent L2-L4 decompression/fusion (03/04/19; [facility])- Grade view 1, Glidescope#4, ETT 7.5. - S/P Right NIURKA: 07/25/18: SAB x1 attempt at [facility] - ASA instructions: okay to continue ASA perioperatively Chart Review Chart Review: Acceptable Risk for Surgery and Patient seen in Pre Admission Testing Teaching & Discussion Pre-Anesthesia Teaching/Discussion Notes: Instructed NPO after midnight before surgery,except medications with 15 cc of water. Medication instructions provi ded according to the PAT guidelines. History Surgery Operation Date: 09/10/20 07:15 Proposed Procedures p Left Anterior Total Hip Arthroplasty - Richard Thomas DO Height/Weight Height: 5 ft 3.5 in Weight: 82.1 kg Allergies Allergy/AdvReac Type Severity Reaction Status Date / Time No Known Allergies Allergy Verified 07/11/20 12:13 Medications Home Medications Medication Instructions Recorded Confirmed Last Taken Multi For Her 1 tab-cap PO QAM 08/15/18 08/30/20 1 Week Ago ~02/25/19 atenolol 25 mg PO QAM 08/15/18 08/30/20 03/04/19 04:00 cyclobenzaprine 5 mg PO BID PRN 08/15/18 08/30/20 03/03/19 20:00 enalapril maleate 10 mg PO QAM 08/15/18 08/30/20 03/03/19 08:00 fluticasone propionate 1 spray INTRANASAL DAILY 08/15/18 08/30/20 03/03/19 20:00 hydrochlorothiazide 25 mg PO QAM 08/15/18 08/30/20 03/03/19 08:00 meloxicam 15 mg PO QAM 08/15/18 08/30/20 03/03/19 08:00 metformin 1 tab PO BID 08/15/18 08/30/20 03/03/19 20:00 omega 0-bxb-gvn-fish oil [Fish Oil] 1 cap PO BID 08/15/18 08/30/20 1 Week Ago ~02/25/19 pravastatin 20 mg PO QPM 08/15/18 08/30/20 03/03/19 20:00 sertraline 150 mg PO QAM 08/15/18 08/30/20 03/04/19 04:00 Trulicity 1 unit SUBCUT WK 08/18/18 08/30/20 03/01/19 Probiotic 3,000 mmu cells PO BID 02/24/19 08/30/20 03/03/19 20:00 aspirin [Aspirin Low Dose] 81 mg PO QPM 02/24/19 08/30/20 03/03/19 20:00 coQ10 (ubiquinol) 100 mg PO QPM 02/24/19 08/30/20 1 Week Ago ~02/25/19 cyanocobalamin (vitamin B-12) 100 mcg IM MONTHLY 02/24/19 08/30/20 1 Week Ago ~02/25/19 oxycodone-acetaminophen [Percocet] 1 tab PO BID PRN 07/11/20 08/30/20 Unknown Past Medical History Medical History Anxiety Diabetes mellitus, type II NIDDM Fatty liver Hiatal hernia History of anemia No known hx of blood transfusion History of elevated antinuclear antibody (NARESH) History of kidney disease CKD stage II History of neck problems Follows with chiropractor Hyperlipidemia Hypertension Neuropathy Feet Osteoarthritis Exercise / Class Metabolic Activity III < 4 Walking/Shop/Light housework (uses cane ) Past Family History Family History Mother Family history of AML (acute myeloid leukemia) Grandfather (Paternal) Family history of breast cancer Father Family history of diabetes mellitus Family/Other Family history of diabetes mellitus Other No family history of adverse response to anesthesia Past Surgical History Surgical History Difficult airway for intubation Laparoscopic hysterectomy: 11/03/15 ([facility]) "Small mouth opening/anterior vocal cords." Glidescope #4 x 2 attempts, successful. Difficulty 1/2. Anesthesia records scanned in. History of arthroscopy of right knee History of colonoscopy History of hysterectomy History of lumbar surgery L2-L4 decompression/fusion: 03/04/19: Grade view 1, Glidescope#4, ETT 7.5 at [facility] History of lumpectomy of right breast "Benign" History of sebaceous cyst Excision from forehead History of surgical procedure on mouth Lower lip skin growth removal History of total right hip replacement Right NIURKA: 07/25/18: SAB x1 attempt at [facility] History of total right knee replacement Past Anesthesia History Difficult Airway and No Family Hx of Anesthesia Complications Hx glidescope intubation (as follows) Laparoscopic hysterectomy: 11/03/15 ([facility]) "Small mouth opening/anterior vocal cords." Glidescope #4 x 2 attempts, successful. Difficulty 1/2. Anesthesia records scanned in. Laparoscopic hysterectomy: 11/03/15 ([facility]) "Small mouth opening/anterior vocal cords." Glidescope #4 x 2 attempts, successful. Difficulty 1/2. Anesthesia records scanned in. History of PONV No Hx of PONV and No Hx of Motion Sickness Social History Smoking Status: Former smoker tobacco type: cigarettes Smoking cigarettes per day: Quit 1990s (hx light intermittent use) Do You Dip or Chew Tobacco: No Hx Alcohol Use: Yes Alcohol type: wine alcohol intake frequency: holidays/special occasions only Hx Substance Use: No Review of Systems Patient denies chest pain, shortness of breath, fever, chills, cough, wheezing, palpitations. Physical Exam Vital Signs VITALS BP P 75 TEMP 98.7 SP02 98%RA RESP 18 PHYSICAL Full neck and c-spine range of motion. Full TMJ range of motion. TMD 3.5 finger breaths Mallampati Score 3 Dentition: intact, + several caps "all over", 2 bridges (dental work includes upper front teeth) Lungs: clear throughout to auscultation Cardiac: regular rate and rhythm, no murmurs noted Spine: normal Carotid arteries: negative bruit Extremities: no edema Testing Laboratory Results 09/01/20 13:42 09/01/20 13:42 PT 9.7 Seconds (9.0-12.0) 09/01/20 13:42 INR 1.0 (0.9-1.1) 09/01/20 13:42 APTT 24.5 Seconds (21.0-31.0) 09/01/20 13:42 Hemoglobin A1c 6.6 % (4.5-5.6) H 09/01/20 13:42 Urine Color Yellow 09/01/20 13:42 Urine Appearance Clear (Clear) 09/01/20 13:42 Urine pH 5.0 (4.5-7.5) 09/01/20 13:42 Ur Specific [place] 1.018 (1.000-1.030) 09/01/20 13:42 Urine Protein Negative (Negative) 09/01/20 13:42 Urine Glucose (UA) Negative (Negative) 09/01/20 13:42 Urine Ketones Negative (Negative) 09/01/20 13:42 Urine Nitrite Negative (Negative) 09/01/20 13:42 Ur Leukocyte Esterase 2+ (Negative) H 09/01/20 13:42 Urine WBC (Auto) 10-30 /hpf (0-5) H 09/01/20 13:42 Urine RBC (Auto) 0-4 /hpf (0-4) 09/01/20 13:42 U Hyaline Cast (Auto) 1-5 /lpf (0-5) 09/01/20 13:42 U Epithel Cells (Auto) 10-20 /lpf (0-5) H 09/01/20 13:42 Urine Bacteria (Auto) Negative (Negative) 09/01/20 13:42 Blood Type A Positive 09/01/20 13:42 Antibody Screen NEGATIVE 09/01/20 13:42 Electrocardiogram Date: 09/01/20 NSR at 74bpm. iRBBB. No significant change compared to 08/18/18 per director drug review. Chest X-Ray Date: 09/01/20 Findings: + NAD Echocardiogram Date: 02/11/14 EF: 72% The examination is adequate for the referrel indication. LV wall motion is normal. RV systolic function is normal. LV diastolic function normal. Mild AV sclerosis is present. Mild TR. No pulmonary HTN. Stress Test Date: 07/23/13 Type: DSE Dobutamine induced segmental wall motion abnormality. EKG changes and symptoms may suggest myocardial ischemia. Global LV systolic function is normal. > Patient followed with cardiology who reviewed abnormal 2014 stress test prior to 05/2017 Right knee scope and 08/2018 Right NIURKA both done at [facility]. Suspected false positive. Per 02/2017 cardiology records- pt stable, no chest pain, good functional status with no contraindications for surgery from cardiac standpoint. Patient was since advised by cardiology to f/u as needed per 2018 records
--- NOTE | 2020-09-01 14:44 | XRay Report ---
XR chest Pre-admission PA/Lat CLINICAL HISTORY: Preoperative chest COMPARISON STUDY: 08/18/2018 FINDINGS: The cardiac and mediastinal contours are normal. There is no evidence of focal pulmonary co nsolidation. There is no evidence of failure. No pleural effusions are visualized.[ IMPRESSION: No active disease in the chest. ACT 112: Negative or not required by law. Electronically signed by: Victoriano Mejia M.D. 09/01/2020 2:42 PM
[2020-09-01 15:08] LABS: Basophils # (auto) 0.03 K/uL (0-0.2); Basophils % (auto) 0.4 %; Eosinophils % (auto) 2.6 %; Hematocrit (blood only) 35.1 % (37-47); Hemoglobin 11.5 g/dL (12.0-16.0); Immature Granulocytes # (auto) 0.03 K/uL (0.00-0.02); Immature Granulocytes % (auto) 0.4 %; Lymphocytes # (auto) 1.45 K/uL (1.2-3.4); Mean Corpuscular Hemoglobin 31.3 pg (25-34); Mean Corpuscular Hgb Conc 32.8 g/dL (32-36); Mean Corpuscular Volume 95.6 fL (80-100); Mean Platelet Volume 9.8 fL (7.4-10.4); Monocytes # (auto) 0.48 K/uL (0.11-0.59); Monocytes % (auto) 6.3 %; Neutrophils # (auto) 5.44 K/uL (1.4-6.5); Neutrophils % (auto) 71.3 %; Platelet Count 285 K/uL (130-400); RDW Coefficient of Variation 13.3 % (11.5-14.5); RDW Standard Deviation 45.9 fL (36.4-46.3); Red Blood Count 3.67 M/uL (4.2-5.4); White Blood Count 7.63 K/uL (4.8-10.8)
[2020-09-01 15:11] LABS: Estimated Average Glucose 143 mg/dl; Hemoglobin A1C 6.6 % (4.5-5.6)
[2020-09-01 15:15] LABS: Albumin Level 3.8 gm/dl (3.4-5.0); BUN Creatinine Ratio 16.6 (10-20); Calcium 9.3 mg/dl (8.5-10.1); Creatinine Clr Calc Pharmacy 54.7 ml/min; Est GFR (African American) 67.2; Est GFR (Non-African American) 57.9; Potassium 4.1 mmol/L (3.5-5.1)
[2020-09-01 15:20] LABS: Appearance Urine Clear (Clear); Bacteria Urine Automated Negative (Negative); Bilirubin Urine Negative (Negative); Blood Urine Negative (Negative); Color Urine Yellow; Glucose Urine UA Negative (Negative); Ketones Urine Negative (Negative); Leukocyte Esterase Urine 2+ (Negative); Nitrite Urine Negative (Negative); Protein Urine Negative (Negative); RBC Urine Automated 0-4 /hpf (0-4); Specific Gravity Urine 1.018 (1.000-1.030); Urobilinogen Urine Negative (Negative)
[2020-09-01 15:29] LABS: Partial Thromboplastin Ratio 0.9; Partial Thromboplastin Time 24.5 Seconds (21.0-31.0); Prothrombin Time 9.7 Seconds (9.0-12.0)
--- NOTE | 2020-09-01 16:37 | Electrocardiogram Report ---
Test Reason : Blood Pressure : / mmHG Vent. Rate : 074 BPM Atrial Rate : 074 BPM P-R Int : 182 ms QRS Dur : 104 ms QT Int : 412 ms P-R-T Axes : 072 047 055 degrees QTc Int : 457 ms Normal sinus rhythm Incomplete right bundle branch block Borderline ECG When compared with ECG of 18-AUG-2018 15:14, No significant change was found Confirmed by Isiah Benjamin ([id number]) on 09/01/2020 4:36:22 PM Referred By: Richard Thomas Confirmed By:Isiah Benjamin
--- NOTE | 2020-09-08 21:09 | History & Physical Report ---
Date of Service September 10, 2020 Assessment & Plan (1) Degenerative joint disease of left hip: I have indicated the patient for left anterior total hip replacement. The risks, benefits and complications of surgery were explained to the patient which include but not limited to infection, acute blood loss, DVT/PE, injury to nerves, vessels, bone, soft tissue, arthrofibrosis, chronic pain, failure of the prosthesis, hip dislocation, leg length discrepancy, need for additional surgery, cardiac and pulmonary events and . The patient wished to proceed with surgery and informed consent was obtained at this time. We will plan for ASA BID post-operatively for DVT prophylaxis. Upon discharge the patient will be discharged home with home health services. Appropriate clearances by PCP were obtained. History of Present Illness Chief Complaint: Left hip pain/DJD Primary Care Provider: Yelitza Urias PA-C The patient is a 75 year old female who presents with complaints of severe left hip pain and DJD. The patient has failed outpatient conservative treatments to this point which included NSAIDs, IA corticosteroid injection, PT/HEP. The patient's pain and limited function have progressed to the point where they severely hinder their activities of daily living and they no longer tolerate exercise programs. They are requesting to proceed with total hip replacement surgery. Allergies Allergy/AdvReac Type Severity Reaction Status Date / Time No Known Allergies Allergy Verified 09/10/20 07:38 Home Medications Medication Instructions Recorded Confirmed Type Multi For Her 1 tab-cap PO QAM 08/15/18 09/10/20 History atenolol 25 mg PO QAM 08/15/18 09/10/20 History cyclobenzaprine 5 mg PO BID PRN 08/15/18 09/10/20 History enalapril maleate 10 mg PO QAM 08/15/18 09/10/20 History fluticasone propionate 1 spray INTRANASAL DAILY 08/15/18 09/10/20 History hydrochlorothiazide 25 mg PO QAM 08/15/18 09/10/20 History meloxicam 15 mg PO QAM 08/15/18 09/10/20 History metformin 1 tab PO BID 08/15/18 09/10/20 History omega 2-hut-oau-fish oil [Fish Oil] 1 cap PO BID 08/15/18 09/10/20 History pravastatin 20 mg PO QPM 08/15/18 09/10/20 History sertraline 150 mg PO QAM 08/15/18 09/10/20 History Trulicity 1 unit SUBCUT WK 08/18/18 09/10/20 History Probiotic 3,000 mmu cells PO BID 02/24/19 09/10/20 History aspirin [Aspirin Low Dose] 81 mg PO QPM 02/24/19 09/10/20 History coQ10 (ubiquinol) 100 mg PO QPM 02/24/19 09/10/20 History cyanocobalamin (vitamin B-12) 100 mcg IM MONTHLY 02/24/19 09/10/20 History oxycodone-acetaminophen [Percocet] 1 tab PO BID PRN 07/11/20 09/10/20 History Past Med/Surg History Medical History Anxiety Diabetes mellitus, type II NIDDM Fatty liver Hiatal hernia History of anemia No known hx of blood transfusion History of elevated antinuclear antibody (NARESH) History of kidney disease CKD stage II History of neck problems Follows with chiropractor Hyperlipidemia Hypertension Neuropathy Feet Osteoarthritis Surgical History Difficult airway for intubation Laparoscopic hysterectomy: 11/03/15 ([facility]) "Small mouth opening/anterior vocal cords." Glidescope #4 x 2 attempts, successful. Difficulty 1/2. Anest hesia records scanned in. History of arthroscopy of right knee History of colonoscopy History of hysterectomy History of lumbar surgery L2-L4 decompression/fusion: 03/04/19: Grade view 1, Glidescope#4, ETT 7.5 at [facility] History of lumpectomy of right breast "Benign" History of sebaceous cyst Excision from forehead History of surgical procedure on mouth Lower lip skin growth removal History of total right hip replacement Right NIURKA: 07/25/18: SAB x1 attempt at [facility] History of total right knee replacement Family History Mother Family history of AML (acute myeloid leukemia) Grandfather (Paternal) Family history of breast cancer Father Family history of diabetes mellitus Family/Other Family history of diabetes mellitus Other No family history of adverse response to anesthesia Social History Smoking Status: Former smoker Cigarettes Per Day: Quit (hx light intermittent use); Second Hand Exposure: Yes ( A CHILD); Do You Dip or Chew Tobacco: No; Tobacco Cessation Education Requested by Patient: No Hx Alcohol Use: Yes Alcohol type: wine Hx Substance Use: No Preferred Language: Taiwanese Communication Ability: Effective Track Layer Required: No Beliefs That Will Affect Care: None Current Living Situation: Spouse Feels Safe at Home: Yes Safety Concerns: Feels Safe At This Time Assistive Devices: Cane and Walker Review of Systems Review of Systems: All systems reviewed & are unremarkable except as noted in HPI & below Constitutional: as per Subjective / HPI Physical Exam Physical Exam: LLE NVSI +EHL/FHL/TA/GS SILT grossly, +2 DP pulse, compartments soft NT, limited painful ROM of the hip, antalgic gait. Constitutional: WD/WN, vitals as above Eyes: PERRL, conjunctivae normal, anicteric sclerae ENMT: external ear and nose normal, oropharynx normal Neck: trachea midline, no thyromegaly Respiratory: normal respiratory effort, lungs clear to auscultation Cardiovascular: RRR, no murmur, no edema Gastrointestinal (Abdomen): normal bowel sounds, soft, nontender, no hepatosplenomegaly Musculoskeletal: no cyanosis or clubbing, extremities motor strength 5/5 Skin: no rashes, warm and dry Neurologic: patellar DTR's 2+ bilat, sensation intact Psychiatric: A+Ox3, euthymic affect Lymphatic: no cervical or axillary lymphadenopathy Results & Data Results & Data ([facility]) Diagnostic Findings Multiple views of the hip demonstrates severe DJD with complete loss of the joint space. +osteophytes, +sclerosis, +subchondral cysts. Pre Admission Testing Addendum Laboratory Results 09/01/20 13:42 09/01/20 13:42 PT 9.7 Seconds (9.0-12.0) 09/01/20 13:42 INR 1.0 (0.9-1.1) 09/01/20 13:42 APTT 24.5 Seconds (21.0-31.0) 09/01/20 13:42 Hemoglobin A1c 6.6 % (4.5-5.6) H 09/01/20 13:42 Urine Color Yellow 09/01/20 13:42 Urine Appearance Clear (Clear) 09/01/20 13:42 Urine pH 5.0 (4.5-7.5) 09/01/20 13:42 Ur Specific Adams 1.018 (1.000-1.030) 09/01/20 13:42 Urine Protein Negative (Negative) 09/01/20 13:42 Urine Glucose (UA) Negative (Negative) 09/01/20 13:42 Urine Ketones Negative (Negative) 09/01/20 13:42 Urine Nitrite Negative (Negative) 09/01/20 13:42 Ur Leukocyte Esterase 2+ (Negative) H 09/01/20 13:42 Urine WBC (Auto) 10-30 /hpf (0-5) H 09/01/20 13:42 Urine RBC (Auto) 0-4 /hpf (0-4) 09/01/20 13:42 U Hyaline Cast (Auto) 1-5 /lpf (0-5) 09/01/20 13:42 U Epithel Cells (Auto) 10-20 /lpf (0-5) H 09/01/20 13:42 Urine Bacteria (Auto) Negative (Negative) 09/01/20 13:42 Blood Type A Positive 09/01/20 13:42 Antibody Screen NEGATIVE 09/01/20 13:42 09/01/20 13:42 Urine Culture - Final Urine,Clean Catch More than three types of organisms present, all moderate counts mixed probable skin perri. No further identifications or sensitivities to follow.
[~2020-09-10 07:13] MED LIST changes: +ACETAMINOPHEN 500 MG TAB PO SCH; -CEFAZOLIN 2000MG 2,000 MG/15 ML SYR IV SCH; +CeleBREX 200 MG CAP PO SCH; +FAMOTIDINE 20 MG TAB PO SCH; +GABAPENTIN 300 MG CAP PO SCH; -LR 15ML/HR IV SCH; +METOCLOPRAMIDE HCL 10 MG TABLET PO SCH; +ROPIVACAINE 0.5% HCL/PF 150 MG, BUPIVACAINE 0.75% MPF 20 ML, EPINEPHrine 30MG/30ML (OR ... INFIL SCH; +TRANEXAMIC ACID 1,000 MG **IV Intra-op IV SCH; +TRANEXAMIC ACID 1,000 MG **IV Pre-op IV SCH; +ceFAZolin 2000MG 2,000 MG/15 ML SYR IV SCH; +dexAMETHasone 4 MG TAB PO SCH
[2020-09-10] MEDS ORDERED: BUPIVACAINE 0.5 % 5 MG/1 ML PF 10ML VIAL ONE (07:23)
[2020-09-10] MEDS ORDERED: ROPIVACAINE 0.5% 5 MG/ML 30 ML VIAL ONE (07:23)
[2020-09-10] MEDS ORDERED: HYDROmorphone INJ 2 MG/ML SYR/VIAL IV PRN (08:12)
[2020-09-10] MEDS ORDERED: ePHEDrine sulfate 50 MG/ML AMP IV PRN (08:12)
[2020-09-10] MEDS ORDERED: ONDANSETRON INJ 2 MG/ML 2 ML VIAL IV PRN ×2 (08:12→13:06)
[2020-09-10] MEDS ORDERED: fentaNYL citrate 100 MCG/2 ML VIAL IV PRN (08:12)
[2020-09-10] MEDS ORDERED: PROMETHAZINE HCL 12.5 MG in SODIUM CHLORIDE 0.9% 50 ML IV PRN (08:12)
[2020-09-10] MEDS ORDERED: ATROPINE SULFATE 0.1 MG/ML 10ML SYR IV PRN (08:12)
[2020-09-10] MEDS: LR 500ML BOLUS, THEN 15ML/HR IV SCH ×2 (08:13→09:12)
[2020-09-10] MEDS ORDERED: MIDAZOLAM HCL 1 MG/ML 2ML VIAL ONE ×2 (08:28)
--- NOTE | 2020-09-10 08:37 | History & Physical Bridge Note ---
Date of Service September 10, 2020 History & Physical Bridge Note I have examined the patient, reviewed the History & Physical and in the interval since the performance of the History & Physical I have noted the following changes of clinical significance: no changes noted
[2020-09-10] MEDS ORDERED: BACITRACIN INJ 50,000 UNIT VIAL ONE (08:48)
[2020-09-10] MEDS ORDERED: ORTHO JOINT ANESTHETIC ONE (08:48)
[2020-09-10] MEDS ORDERED: PROPOFOL IV EMULSION 10 MG/ML 20 ML VIAL IV ONE (09:51)
[2020-09-10] MEDS ORDERED: LIDOCAINE HCL 2% 2 ML VIAL/AMP(20MG/ML) INFIL ONE (10:06)
[2020-09-10] MEDS ORDERED: ONDANSETRON INJ 2 MG/ML 2 ML VIAL ONE (10:06)
[2020-09-10] MEDS ORDERED: FLOSEAL HEMOSTATIC MATRIX 10ML TOP ONE (10:21)
[2020-09-10] MEDS ORDERED: PHENYLEPHRINE 100MCG/ML 5ML SYR ONE (11:17)
--- NOTE | 2020-09-10 11:17 | Post Operative Brief Note ---
Immediate Post Op Note v1 Date of Surgery September 10, 2020 Pre & Post Diagnosis Operation Date: 09/10/20 09:20 Pre-Op Diagnosis: Degenerative joint disease of left hip Post-Op Diagnosis: Degenerative joint disease of left hip I identified the patient and participated in the time-out.: Yes Procedure Operation Date: 09/10/20 09:20 Actual Procedures p Left Anterior Total Hip Arthroplasty(Left) - Richard Thomas DO Surgeon Richard Thomas DO Security Officer Supervisor Will Herrera Estimated Blood Loss 325 Findings Consistent with Post-Op Diagnosis Fluids 1600 cc LR Specimens femoral head Anesthesia Type General Complications none Disposition Disposition: Recovery Room Overlapping Procedure I was present for: the critical portions of procedure. I was immediately available: during the entire case. Back up surgeon: was not required during procedure.
--- NOTE | 2020-09-10 11:18 | Operative Report ---
Post Operative Report Pre & Post Diagnosis Operation Date: 09/10/20 09:20 Pre-Op Diagnosis: Degenerative joint disease of left hip Post-Op Diagnosis: Degenerative joint disease of left hip I identified the patient and participated in the time-out.: Yes Procedure Operation Date: 09/10/20 09:20 Actual Procedures p Left Anterior Total Hip Arthroplasty(Left) - Richard Thomas DO Surgeon Richard Thomas DO Insurance Plan Specialist Will Herrera Estimated Blood Loss 325 Findings Consistent with Post-Op Diagnosis Fluids 1600 cc LR Specimens femoral head Anesthesia Type General Complications none Disposition Disposition: Recovery Room Indications The patient is a 75-year-old female who presents with severe progressive left hip DJD who has failed outpatient conservative treatments. I indicated the patient for a anterior total hip replacement and the risks and benefits were explained in detail which include but not limited to infection, bleeding, blood clot, damage to surrounding bone, nerves, vessels, soft tissue, hip dislocation, failure of the prosthesis, leg length discrepancy, need for additional surgery and . The patient agreed to proceed with replacement of the hip and informed consent was obtained. Appropriate clearances were obtained. Description of Procedure COMPONENTS USED: [employer] hip system: Acetabulum size 52, femur size 4 high offset, femoral head 36-3, liner 52x36, acetabular screw 25mm. DESCRIPTION OF PROCEDURE: Following satisfactory general anesthesia, the patient was placed supine on the OR table. The right leg was placed in the well leg back and the left leg in the traction device. The left leg was prepared with ChloraPrep and draped sterilely. A surgical timeout was performed, patient identified and site gail verified. Appropriate antibiotics were given. A standard anterior approach in the interval between the sartorius and tensor muscles was performed. Dissection was carried down through subcutaneous tissues. Electrocautery was utilized for hemostasis. Circumflex femoral vessels were identified, tied and ligated. The anterior capsular fat pad was removed and the capsulotomy was performed revealing the arthritic femoral neck and head. A femoral neck cut was made with reciprocating saw and the bone fragments removed. The acetabular self-retraining retractor was placed. Acetabular reaming was completed under fluoroscopic guidance, a 52 shell was impacted into an anatomic position and secured with a acetabular screw. Local anesthetic was placed and following irrigation, the polyethylene liner was placed. The femur was placed into position of external rotation, extension and adduction. Femoral canal was prepared up to the size 4 high offset. Trial reduction with a 36-3 neck length head showed good soft tissue tension, leg lengths restored, and good fit and fill of the proximal canal using fluoroscopic landmarks. The hip was dislocated. The trial component was removed. The final implant was placed. The hip was irrigated with sterile saline solution and reduced. A Betadine soak was performed. After 3 minutes, the hip was once more irrigated with copious sterile saline solution with bacitracin. Homa-incisional soft tissue was injected utilizing [place] [employer] which includes a combination of Ropivicaine 0.5% 150mg, Bupivicaine 0.5%/Epinephrine 1:200,000 30ml, Toradol 30mg, Dexamethasone 4mg, Ketamine 10mg, Clonidine 100mcg and NSS 30ml solution. The capsule was then closed with 1-0 Vicryl interrupted figure of eight sutures. The fascia was closed with a running suture of #1 Vicryl, the subcutaneous tissues with 2-0 Vicryl and the skin was closed with chen. A sterile dry dressing was applied which included FCO incision vac. The patient tolerated the procedure well and was transported to PACU in stable condition. Due to the complex nature of the procedure, the entire surgery was performed with the operational assistance of Will Herrera PA-C. The social and human services assistant, under direct supervision, was involved in the actual performance of all aspects of the surgical procedure including patient positioning, hemostasis, tissue retraction, instrument management and wound closure. I attest to the content of the Intraoperative Record and any orders documented therein. Any exceptions are noted below.
--- NOTE | 2020-09-10 11:30 | Fluoroscopy Report ---
FL hip LT 1V CLINICAL HISTORY: LEFT ANTERIOR HIP COMPARISON STUDY: None. FLUOROSCOPY TIME: 33 seconds. FLUOROSCOPIC IMAGES: 3 FINDINGS: Alignment of the total left hip arthroplasty is anatomic. There is an acetabular screw. No fracture or unexpected radiopaque foreign bodies are noted. Previous right hip arthroplasty is noted. IMPRESSION: Fluoroscopy provided during total left hip arthroplasty. ACT 112: Negative or not required by law. Electronically signed by: Ray Patel M.D. 09/10/2020 11:29 AM
--- NOTE | 2020-09-10 12:26 | XRay Report ---
XR hip 1V LT w pelvis CLINICAL HISTORY: Postoperative evaluation. COMPARISON: Intraoperative fluoroscopic images of the left hip September 10, 2020 at 9:34 AM. FINDINGS: Alignment of the total left hip arthroplasty is anatomic. There is no acute fracture. No u nexpected radiopaque foreign bodies are present. There are skin chen. Right hip arthroplasty and p artially visualized spine fusion hardware are incidentally noted. IMPRESSION: Expected findings following total left hip arthroplasty. ACT 112: Negative or not required by law. Electronically signed by: Ray Patel M.D. 09/10/2020 12:25 PM
--- NOTE | 2020-09-10 12:38 | Anesthesiology Progress Note ---
Date of Service September 10, 2020 Anesthesia Post Procedure Vital Signs Vital Signs: Temp Pulse Pulse Resp BP Pulse Ox 09/10/20 12:30 74 17 113/57 L 98 09/10/20 12:20 75 16 121/57 L 98 09/10/20 12:10 74 16 113/59 L 98 09/10/20 12:00 75 12 117/61 98 09/10/20 11:50 75 13 117/58 L 97 09/10/20 11:42 37.0 C 76 12 125/64 97 09/10/20 09:05 78 16 100 09/10/20 09:00 77 23 100 09/10/20 08:55 76 18 100 09/10/20 07:53 37.3 C 76 20 147/81 H 98 Transfer of Care Handoff Completed per policy Notes Mental Status: alert / awake / arousable Patient Amnestic to Procedure: Yes Nausea / Vomiting: adequately controlled Pain: adequately controlled Airway Patency, RR, SpO2: stable & adequate BP & HR: stable & adequate Hydration State: stable & adequate Neuraxial Anesthesia: was administered and sensory block is resolving Anesthetic Complications: no major complications apparent and Pt Satisfied with anesthetic care
[2020-09-10] MEDS ORDERED: METOCLOPRAMIDE HCL INJ 5 MG/ML 2 ML VIAL IV PRN (13:06)
[2020-09-10] MEDS ORDERED: MAGNESIUM HYDROXIDE SUSP 30 ML UDC PO PRN (13:06)
[2020-09-10] MEDS ORDERED: HYDROmorphone INJ 0.5 MG/0.5 ML SYR IV PRN (13:06)
[2020-09-10] MEDS ORDERED: diphenhydrAMINE Capsule 25 MG CAP PO PRN (13:06)
[2020-09-10] MEDS ORDERED: NALOXONE HCL 0.4 MG/1 ML VIAL/CARP IV PRN (13:06)
[2020-09-10] MEDS ORDERED: bisacodyL 10 MG SUPP PR PRN (13:06)
[2020-09-10] MEDS ORDERED: CYCLOBENZAPRINE HCL 5 MG TAB PO PRN (13:06)
[2020-09-10] MEDS ORDERED: oxyCODONE HCL IR 5 MG TAB (IMMEDIATE RELEASE) PO PRN (13:06)
--- NOTE | 2020-09-10 13:31 | Pharmacy Report ---
Pharmacy Glycemic Short Note 2 - Date of Service September 10, 2020 - Glycemic Short BSG Results (Last 24 hours): 09/10/20 09/10/20 07:49 11:50 POC Glucose 142 H 174 H OUTPATIENT ANTIDIABETIC REGIMEN: * metformin ER 500 mg PO BIDM ASSESSMENT: * Ms Correia is a 75 y/o F with a PMH of well controlled T2DM who presents for L hip replacement. She received PO dexamethasone 8 mg preop plus topical 4 mg of dexamethasone (contained in ortho mix). * Patient's fasting BSG prior to surgery was 142 mg/dL. It is 174 mg/dL after surgery. Give NPH 0.4 units/kg (30 units) to cover for steroid hyperglycemia. * Novolog weight-based stress of 3. * Hold metformin until at least POD 1 (~24 hours after surgery). PLAN FOR INPATIENT GLYCEMIC CONTROL: * Hold outpatient oral diabetes medications * Basal insulin * NPH 30 units SQ x 1 * Bolus insulin * NovoLog per scale ACHS or Q6hrs while NPO * Goal Range: Low 110 mg/dL - High 140 mg/dL * Correction Factor: 20 mg/dL/unit * Nutritional / Prandial insulin per carb ratio of 1 unit per 6 grams CHO consumed PLAN FOR DISCHARGE: * Patient's HbA1C indicates adequate control (goal HbA1C is < 7% whereas current HbA1C is 6.6%) so continue current regimen.
[2020-09-10] MEDS ORDERED: PHARMACY GLYCEMIC MGMT CONSULT PRN (13:34)
[2020-09-10] MEDS ORDERED: GLUCAGON FOR INJ 1 MG VIAL IM PRN (13:45)
[2020-09-10] MEDS ORDERED: CARBOHYDRATES FOR HYPOGLYCEMIA PO PRN (13:45)
[2020-09-10] MEDS ORDERED: DEXTROSE 50% 50 ML SYRINGE IV PRN (13:45)
[2020-09-10] MEDS ORDERED: GLUCOSE 40% GEL 15 GM TUBE PO PRN (13:45)
[2020-09-10] MEDS ORDERED: GLUCOSE 10 TABS/TUBE PO PRN (13:45)
[2020-09-10] MEDS ORDERED: NovoLIN-N (NPH) PER UNIT CHARGE SQ ONE (14:00)
[2020-09-10] MEDS: SODIUM CHLORIDE 0.9% 1000ML 1,000 ML IV SCH (14:16)
[2020-09-10] MEDS: INSULIN ASPART 100 UNITS/ML 3 ML PEN SC SCH ×3 (14:22→20:55)
[2020-09-10] MEDS: ACETAMINOPHEN 500 MG TAB PO SCH ×2 (14:25→21:04)
[2020-09-10] MEDS: KETOROLAC TROMETHAMINE 15 MG/ML VIAL IV SCH ×2 (14:26→19:42)
--- NOTE | 2020-09-10 14:29 | Anesthesiology Progress Note ---
Date of Service September 10, 2020 Anesthesia Post Procedure Vital Signs Vital Signs: Temp Pulse Pulse Resp BP Pulse Ox 09/10/20 14:01 36.7 C 74 16 118/72 100 09/10/20 13:30 36.6 C 80 16 116/69 99 09/10/20 13:00 36.7 C 74 16 111/65 98 09/10/20 12:40 36.3 C L 74 16 110/56 L 98 09/10/20 12:30 74 17 113/57 L 98 09/10/20 12:20 75 16 121/57 L 98 09/10/20 12:10 74 16 113/59 L 98 09/10/20 12:00 75 12 117/61 98 09/10/20 11:50 75 13 117/58 L 97 09/10/20 11:42 37.0 C 76 12 125/64 97 09/10/20 09:05 78 16 100 09/10/20 09:00 77 23 100 09/10/20 08:55 76 18 100 09/10/20 07:53 37.3 C 76 20 147/81 H 98 Transfer of Care Handoff Completed per policy Notes Mental Status: alert / awake / arousable and participated in evaluation Patient Amnestic to Procedure: Yes Nausea / Vomiting: adequately controlled Pain: adequately controlled Airway Patency, RR, SpO2: stable & adequate BP & HR: stable & adequate Hydration State: stable & adequate Anesthetic Complications: no major complications apparent and Pt Satisfied with anesthetic care
--- NOTE | 2020-09-10 15:19 | Orthopedic Progress Note ---
Date of Service September 10, 2020 Assessment & Plan (1) Degenerative joint disease of left hip: s/p L anterior NIURKA -ancef x 24 -DVT ppx: SCDs, TEDs, 81mg ASA BID -WBAT LLE -PT/OT -PO XR demonstrates a well aligned well fixed prosthesis without fracture/dislocation -am labs -DC planning Admission and Anticipated Discharge Date Admission Date: September 10, 2020 Subjective Post Operative Progress Note Patient seen sitting up in bed, comfortable, denies complaints, pain well controlled, no acute issues. Review of Systems Review of Systems: All systems reviewed & are unremarkable except as noted in HPI & below Constitutional: as per Subjective / HPI Physical Exam Physical Exam: LLE NVSI limited secondary to spinal, +2 DP pulse, compartment soft NT, dressing CDI Constitutional: WD/WN, vitals as above Results & Data ([facility]) Vital Signs (Past 12 Hours) Vital Signs Temp Pulse Pulse Resp BP Pulse Ox 09/10/20 15:00 36.6 C 78 20 110/68 95 09/10/20 14:01 36.7 C 74 16 118/72 100 09/10/20 13:30 36.6 C 80 16 116/69 99 09/10/20 13:00 36.7 C 74 16 111/65 98 09/10/20 12:40 36.3 C L 74 16 110/56 L 98 09/10/20 12:30 74 17 113/57 L 98 09/10/20 12:20 75 16 121/57 L 98 09/10/20 12:10 74 16 113/59 L 98 09/10/20 12:00 75 12 117/61 98 09/10/20 11:50 75 13 117/58 L 97 09/10/20 11:42 37.0 C 76 12 125/64 97 09/10/20 09:05 78 16 100 09/10/20 09:00 77 23 100 09/10/20 08:55 76 18 100 09/10/20 07:53 37.3 C 76 20 147/81 H 98
[2020-09-10] MEDS: ceFAZolin 2000MG 2,000 MG/15 ML SYR IV SCH (18:03)
[2020-09-10] MEDS ORDERED: SENNA 8.6 MG TAB PO SCH (21:00)
[2020-09-10] MEDS ORDERED: PRAVASTATIN SOD 20 MG TAB PO SCH (21:00)
[2020-09-10] MEDS: DOCUSATE SODIUM 100 MG CAP PO SCH (21:04)
[2020-09-11] MEDS: INSULIN ASPART 100 UNITS/ML 3 ML PEN SC SCH ×4 (00:14→12:08)
[2020-09-11] MEDS: SODIUM CHLORIDE 0.9% 1000ML 1,000 ML IV SCH (00:33)
[2020-09-11] MEDS: KETOROLAC TROMETHAMINE 15 MG/ML VIAL IV SCH ×3 (02:17→14:32)
[2020-09-11] MEDS: ceFAZolin 2000MG 2,000 MG/15 ML SYR IV SCH (02:17)
[2020-09-11] MEDS: ACETAMINOPHEN 500 MG TAB PO SCH ×2 (05:50→14:01)
[2020-09-11 06:04] LABS: Basophils # (auto) 0.01 K/uL (0-0.2); Basophils % (auto) 0.1 %; Eosinophils # (auto) 0.04 K/uL (0-0.5); Eosinophils % (auto) 0.3 %; Hematocrit (blood only) 28.3 % (37-47); Hemoglobin 9.5 g/dL (12.0-16.0); Immature Granulocytes # (auto) 0.05 K/uL (0.00-0.02); Immature Granulocytes % (auto) 0.4 %; Lymphocytes # (auto) 1.22 K/uL (1.2-3.4); Lymphocytes % (auto) 9.1 %; Mean Corpuscular Hemoglobin 31.1 pg (25-34); Mean Corpuscular Hgb Conc 33.6 g/dL (32-36); Mean Corpuscular Volume 92.8 fL (80-100); Mean Platelet Volume 9.2 fL (7.4-10.4); Monocytes # (auto) 0.86 K/uL (0.11-0.59); Monocytes % (auto) 6.4 %; Neutrophils # (auto) 11.17 K/uL (1.4-6.5); Neutrophils % (auto) 83.7 %; Platelet Count 246 K/uL (130-400); RDW Coefficient of Variation 13.2 % (11.5-14.5); RDW Standard Deviation 44.5 fL (36.4-46.3); Red Blood Count 3.05 M/uL (4.2-5.4); White Blood Count 13.35 K/uL (4.8-10.8)
[2020-09-11 06:39] LABS: BUN Creatinine Ratio 22.4 (10-20); Calcium 8.3 mg/dl (8.5-10.1); Creatinine Clr Calc Pharmacy 52.5 ml/min; Est GFR (Non-African American) 55.2
--- NOTE | 2020-09-11 08:45 | Pharmacy Report ---
Pharmacy Glycemic Short Note 2 - Date of Service September 11, 2020 - Glycemic Short BSG Results (Last 24 hours): 09/10/20 09/10/20 09/10/20 11:50 13:34 17:07 Glucose POC Glucose 174 H 205 H 185 H 09/10/20 09/11/20 09/11/20 20:46 00:00 03:55 Glucose POC Glucose 180 H 182 H 167 H 09/11/20 09/11/20 05:48 08:07 Glucose 137 H POC Glucose 128 H OUTPATIENT ANTIDIABETIC REGIMEN: * metformin ER 500 mg PO BIDM ASSESSMENT: 09/11/20 * Ms Correia's blood sugars yesterday were [phone] mg/dL and 182-167 mg/dL overnight. Fasting this morning was 137 mg/dL. * She received a total of 57 units of insulin yesterday (30 units of basal plus 27 units of bolus). She received an additional 5 units overnight. * Give additional 15 units of NPH this morning due to steroid use yesterday. Continue Novolog for now but expect loosening later today as steroid effects dissipate. * Restart metformin ER at dinnertime. 09/10/20 * Ms Correia is a 75 y/o F with a PMH of well controlled T2DM who presents for L hip replacement. She received PO dexamethasone 8 mg preop plus topical 4 mg of dexamethasone (contained in ortho mix). * Patient's fasting BSG prior to surgery was 142 mg/dL. It is 174 mg/dL after surgery. Give NPH 0.4 units/kg (30 units) to cover for steroid hyperglycemia. * Novolog weight-based stress of 3. * Hold metformin until at least POD 1 (~24 hours after surgery). PLAN FOR INPATIENT GLYCEMIC CONTROL: * Hold outpatient oral diabetes medications * Basal insulin * NPH 15 units SQ x 1 * Bolus insulin * NovoLog per scale ACHS or Q6hrs while NPO * Goal Range: Low 110 mg/dL - High 140 mg/dL * Correction Factor: 20 mg/dL/unit * Nutritional / Prandial insulin per carb ratio of 1 unit per 6 grams CHO consumed * Metformin ER 500 mg BIDM starting with dinner PLAN FOR DISCHARGE: * Patient's HbA1C indicates adequate control (goal HbA1C is < 7% whereas current HbA1C is 6.6%) so continue current regimen.
[2020-09-11] MEDS: DOCUSATE SODIUM 100 MG CAP PO SCH (08:50)
[2020-09-11] MEDS ORDERED: ASPIRIN 81 MG ECTAB PO SCH (09:00)
[2020-09-11] MEDS ORDERED: hydroCHLOROthiazide 25 MG TAB PO SCH (09:00)
[2020-09-11] MEDS ORDERED: ATENOLOL 25 MG TABLET PO SCH (09:00)
[2020-09-11] MEDS ORDERED: MULTIVITAMIN TAB PO SCH (09:00)
[2020-09-11] MEDS ORDERED: SERTRALINE HCL 50 MG TABLET PO SCH (09:00)
[2020-09-11] MEDS ORDERED: ENALAPRIL MALEATE 10 MG TAB PO SCH (09:00)
[2020-09-11] MEDS ORDERED: NovoLIN-N (NPH) PER UNIT CHARGE SQ ONE (09:00)
--- NOTE | 2020-09-11 10:53 | Orthopedic Progress Note ---
Date of Service September 11, 2020 Assessment & Plan (1) Degenerative joint disease of left hip: s/p L anterior NIURKA POD#1 -ancef x 24 -DVT ppx: SCDs, TEDs, 81mg ASA BID -WBAT LLE -PT/OT -PO XR demonstrates a well aligned well fixed prosthesis without fracture/dislocation -am labs - as above, hgb 9.5 -DC planning - home with HH Admission and Anticipated Discharge Date Admission Date: September 10, 2020 Subjective Post Operative Progress Note Patient seen sitting up in bed, comfortable, denies complaints, pain well controlled, no acute issues. Denies F/C/N/V/SOB/CP. Review of Systems Review of Systems: All systems reviewed & are unremarkable except as noted in HPI & below Physical Exam Physical Exam: LLE NVSI +EHL/FHL/TA/GS SILT grossly, +2 DP pulse, compartments soft NT, dressing cdi. Results & Data ([facility]) Vital Signs (Past 12 Hours) Vital Signs Temp Pulse Resp BP Pulse Ox 09/11/20 08:47 78 121/72 09/11/20 07:37 36.8 C 74 16 109/64 99 09/11/20 03:27 36.6 C 75 16 107/48 L 97 09/10/20 22:58 36.8 C 84 18 136/69 96 Laboratory Results 09/11/20 09/11/20 09/11/20 Range/Units 08:07 05:48 05:48 WBC 13.35 H (4.8-10.8) K/uL RBC 3.05 L (4.2-5.4) M/uL Hgb 9.5 L (12.0-16.0) g/dL Hct 28.3 L (37-47) % MCV 92.8 (80-100) fL MCH 31.1 (25-34) pg MCHC 33.6 (32-36) g/dL RDW Std Deviation 44.5 (36.4-46.3) fL RDW Coeff of Lars 13.2 (11.5-14.5) % Plt Count 246 (130-400) K/uL MPV 9.2 (7.4-10.4) fL Immature Gran % (Auto) 0.4 % Neut % (Auto) 83.7 % Lymph % (Auto) 9.1 % [place] % (Auto) 6.4 % Eos % (Auto) 0.3 % Baso % (Auto) 0.1 % Neut # (Auto) 11.17 H (1.4-6.5) K/uL Lymph # (Auto) 1.22 (1.2-3.4) K/uL [place] # (Auto) 0.86 H (0.11-0.59) K/uL Eos # (Auto) 0.04 (0-0.5) K/uL Baso # (Auto) 0.01 (0-0.2) K/uL Immature Gran # (Auto) 0.05 H (0.00-0.02) K/uL Sodium 140 (136-145) mmol/L Potassium 4.0 (3.5-5.1) mmol/L Chloride 108 H (98-107) mmol/L Carbon Dioxide 26 (21-32) mmol/L Anion Gap 6.0 (3-11) BUN 23 H (7-18) mg/dl Creatinine 1.01 (0.6-1.2) mg/dl Est Cr Clr Drug Dosing 52.5 ml/min Est GFR ( Amer) 64.0 Est GFR (Non-Af Amer) 55.2 BUN/Creatinine Ratio 22.4 H (10-20) Glucose 137 H (70-99) mg/dl POC Glucose 128 H (70-99) mg/dl Calcium 8.3 L (8.5-10.1) mg/dl 09/11/20 09/11/20 09/10/20 Range/Units 03:55 00:00 20:46 WBC (4.8-10.8) K/uL RBC (4.2-5.4) M/uL Hgb (12.0-16.0) g/dL Hct (37-47) % MCV (80-100) fL MCH (25-34) pg MCHC (32-36) g/dL RDW Std Deviation (36.4-46.3) fL RDW Coeff of Lars (11.5-14.5) % Plt Count (130-400) K/uL MPV (7.4-10.4) fL Immature Gran % (Auto) % Neut % (Auto) % Lymph % (Auto) % [place] % (Auto) % Eos % (Auto) % Baso % (Auto) % Neut # (Auto) (1.4-6.5) K/uL Lymph # (Auto) (1.2-3.4) K/uL [place] # (Auto) (0.11-0.59) K/uL Eos # (Auto) (0-0.5) K/uL Baso # (Auto) (0-0.2) K/uL Immature Gran # (Auto) (0.00-0.02) K/uL Sodium (136-145) mmol/L Potassium (3.5-5.1) mmol/L Chloride (98-107) mmol/L Carbon Dioxide (21-32) mmol/L Anion Gap (3-11) BUN (7-18) mg/dl Creatinine (0.6-1.2) mg/dl Est Cr Clr Drug Dosing ml/min Est GFR ( Amer) Est GFR (Non-Af Amer) BUN/Creatinine Ratio (10-20) Glucose (70-99) mg/dl POC Glucose 167 H 182 H 180 H (70-99) mg/dl Calcium (8.5-10.1) mg/dl 09/10/20 09/10/20 09/10/20 Range/Units 17:07 13:34 11:50 WBC (4.8-10.8) K/uL RBC (4.2-5.4) M/uL Hgb (12.0-16.0) g/dL Hct (37-47) % MCV (80-100) fL MCH (25-34) pg MCHC (32-36) g/dL RDW Std Deviation (36.4-46.3) fL RDW Coeff of Lars (11.5-14.5) % Plt Count (130-400) K/uL MPV (7.4-10.4) fL Immature Gran % (Auto) % Neut % (Auto) % Lymph % (Auto) % [place] % (Auto) % Eos % (Auto) % Baso % (Auto) % Neut # (Auto) (1.4-6.5) K/uL Lymph # (Auto) (1.2-3.4) K/uL [place] # (Auto) (0.11-0.59) K/uL Eos # (Auto) (0-0.5) K/uL Baso # (Auto) (0-0.2) K/uL Immature Gran # (Auto) (0.00-0.02) K/uL Sodium (136-145) mmol/L Potassium (3.5-5.1) mmol/L Chloride (98-107) mmol/L Carbon Dioxide (21-32) mmol/L Anion Gap (3-11) BUN (7-18) mg/dl Creatinine (0.6-1.2) mg/dl Est Cr Clr Drug Dosing ml/min Est GFR ( Amer) Est GFR (Non-Af Amer) BUN/Creatinine Ratio (10-20) Glucose (70-99) mg/dl POC Glucose 185 H 205 H 174 H (70-99) mg/dl Calcium (8.5-10.1) mg/dl
--- NOTE | 2020-09-11 11:31 | Discharge Summary ---
Date of Service September 11, 2020 Admission HPI Per Admitting Provider The patient is a 75 year old female who presents with complaints of severe left hip pain and DJD. The patient has failed outpatient conservative treatments to this point which included NSAIDs, IA corticosteroid injection, PT/HEP. The patient's pain and limited function have progressed to the point where they severely hinder their activities of daily living and they no longer tolerate exercise programs. They are requesting to proceed with total hip replacement surgery. Principal Diagnosis Left anterior total hip replacement -Left hip DJD Discharge Exam LLE NVSI +EHL/FHL/TA/GS SILT grossly, +2 DP pulse, compartments soft NT, dressing cdi. Constitutional WD/WN, vitals as above Discharge Data Allergies Allergy/AdvReac Type Severity Reaction Status Date / Time No Known Allergies Allergy Verified 09/10/20 07:38 Consultations 09/11/20 08:00 Consult Case Management - Discharge Planning Routine Procedures Performed Operation Date: 09/10/20 09:20 Actual Procedures p Left Anterior Total Hip Arthroplasty(Left) - Richard Thomas DO Ordered Studies 09/10/20 09:20 FL fluoroscopy <1hr Routine FL hip LT 1V Routine Hospital Course (1) Degenerative joint disease of left hip: The patient is a 75 -year-old female who presents with long standing history of severe left hip DJD and failed outpatient conservative treatments. The patient's symptoms have progressed to the point where it has been difficult to perform even normal activities of daily living. I indicated the patient for a left anterior total hip arthroplasty, the risks, benefits and complications of the procedure include but not limited to infection, bleeding, damage to bone, nerves, vessels, surrounding soft tissue, may develop blood clots, loss of function, leg length discrepancy, dislocation, failure of the components, loosening of the components, the need for additional surgery and . The patient wished to proceed with surgery at this time and informed consent was obtained. Hospital Course: On 09/10/20 the patient was taken to the operating room, adequate anesthesia administered and underwent a left anterior total hip arthroplasty. The patient tolerated the procedure well and was taken to the PACU in stable condition. Post-operatively the patient was started on a DVT ppx medication and given appropriate IV antibiotics. Consults were placed to physical therapy, occupational therapy and case management. On POD#1, the patient did well overnight and their pain was well controlled. Labs were drawn and the Hgb was 9.5. The patient progressed well with PT. Dressings were changed at this time and the incision was clean, dry and intact. The patients hospital stay was relatively uneventful and they were deemed stable by the orthopedic team and consultants to be discharged home with HH on 09/11/20. Discharge Instructions: Upon discharge the patient may weight bear as tolerates through their operative extremity. They were instructed to keep the incision clean and dry at all times. The patient may shower but should not submerge the incision, avoid bathing, pools and hot tubs. The patient was given a script for pain medication and should take as instructed. The patient was given a script for DVT ppx 81mg ASA BID and should take as directed. The patient was instructed to not drive or travel for long distances until cleared to do so. If the patient develops any symptoms of fevers, chills, nausea, vomiting, increased redness, swelling, pain or drainage from the surgical site, they should notify the office and/or proceed to the nearest emergency room. The patient should follow up in 10-14 days after surgery for their routine post-operative follow-up appointment and should call the office, to confirm the date and time. s/p L anterior NIURKA POD#1 -ancef x 24 -DVT ppx: SCDs, TEDs, 81mg ASA BID -WBAT LLE -PT/OT -PO XR demonstrates a well aligned well fixed prosthesis without fracture/dislocation -am labs - as above, hgb 9.5 -DC planning - home with Total Time Total Time Spent Total Time Spent (In Minutes): 30 Discharge Plan Discharge Items Patient Disposition: Home - Home Health Services Reason For Visit: Unilateral Primary Osteoarthritis, Left Hip Discharge Diagnosis: Left anterior total hip replacement Condition on Discharge: Good Activity: Per Instructions section Lifting: Wait until after follow-up appointment Bathing: Keep incision dry Bathing Comment: No bathing, pools or hot tubs. Sexual Activity: Wait until after follow-up appointment Exercise/Sports: Wait until after follow-up appointment Driving/Machine Use: No driving Weightbearing: Full weightbearing Non-emergency contact: Primary Care Provider and Surgeon Call non-emergency contact if: you have any medication questions, your symptoms worsen, your pain is not controlled, your pain is worsening, your pain is unusual for you, your pain is concerning for you, you have a fever, your temperature is above 101, your wound has increased redness, your wound has increased drainage and your wound pain has increased Follow-up/Referrals: Yelitza Urias PA-C [Primary Care Provider] - Diet: Carb Consistent or DM2 Addtl Attending Provider Instructions: ACTIVITY RECOMMENDATIONS: SELF CARE INSTRUCTIONS AFTER TOTAL HIP REPLACEMENT : Direct Anterior Approach Until the incision and soft tissues around your hip have healed, there is a possibility that the hip prosthesis could dislocate. A. Hip flexion ( Up & Down out of chair or steps ) may be difficult. This is normal. B. Numbness in front of the thigh is also normal for a few weeks. C. Use hand rails when walking on stairs. D. Wear low heeled shoes with non-slip soles. E. Be sure that your floors are free of things that could trip you - throw rugs, electrical cords, small objects. Avoid wet and waxed floors, especially with crutches and canes. F. Try to walk several times a day with rest periods between. G. Continue with all the exercises taught to you in the hospital. Again, make walking a part of your daily routine. SPECIAL CARE INSTRUCTIONS: VERY IMPORTANT TO READ AND REVIEW A. You may still be at risk for phlebitis and blood clots. 1. Wear surgical stockings (RENÉE hose) for 2 weeks after surgery to improve circulation and reduce swelling. 2. Take Aspirin 81mg twice daily for 4 weeks or as directed by your doctor. This is your blood thinner. 3. High risk patients may be prescribed a stronger blood thinner if necessary. 4. If you are on Coumadin normally, your family doctor/fish and wildlife technician should monitor your blood work. Expect a phone call the day of or the day after bloodwork is drawn to adjust your dosage. B. You must take antibiotics before having dental work, bladder, bowel and other surgery. Your doctor will provide you with a permanent card to carry describing precautions. C. Call [facility] if you have a fever, redness or swelling around the incision, cloudy drainage from incision, or sudden increase in pain in your hip, not relieved by your regular pain medication. D. Please call the office at if you have any concerns or q uestions about your operation or recovery. * YOU MAY SHOWER, NO TUB BATHS UNTIL CLEARED BY YOUR DOCTOR. - Keep an extra close eye on the top portion of your incision. Be sure to keep clean & dry. * WEAR RENÉE HOSE 20 HOURS PER DAY FOR 2 WEEKS. * YOU MAY PROGRESS FROM A WALKER, TO A CANE, TO INDEPENDENT AT YOUR OWN PACE. * MOST PATIENTS WILL HAVE HOME NURSING FOR THERAPY. IF YOU DECIDE TO DO OUTPATIENT PHYSICAL THERAPY, PLEASE SCHEDULE THIS 3 TIMES PER WEEK. *FCO incisional vac is a special dressing covering your incision. This dressing provides a sterile dry environment while you are healing. The dressing is to be left in place for 7 days post-operatively. Your home nurse or surgeon will remove. If you develop any redness or blisters or have any questions notify your surgeon immediately. FOLLOW UP VISIT: If appointment is not already scheduled: Please call [facility] to make a follow-up appointment for 2 weeks after your surgery at . Pending Studies at Discharge: No Stand-Alone Forms: My [facility] irisnote, Opioid Pain Management, Smoking Cessation Medications and DC Order Prescriptions: New acetaminophen 500 mg Tablet 1,000 mg PO Q8 PRN (Reason: fever or pain) Qty: 90 RF: 0 aspirin 81 mg Tablet,Delayed Release (Dr/Ec) 81 mg PO BID Qty: 56 RF: 0 oxycodone 5 mg Tablet 5 mg PO .Every 6 hours MDD 4 PRN (Reason: pain) Qty: 30 RF: 0 sennosides [Senokot] 8.6 mg Tablet 17.2 mg PO HS PRN (Reason: constipation) Qty: 28 RF: 0 Continued metformin 500 mg Tablet 1 tab PO BID RF: 0 enalapril maleate 10 mg Tablet 10 mg PO QAM RF: 0 atenolol 25 mg Tablet 25 mg PO QAM RF: 0 pravastatin 20 mg Tablet 20 mg PO QPM RF: 0 hydrochlorothiazide 25 mg Tablet 25 mg PO QAM RF: 0 fluticasone propionate 50 mcg/actuation [place],Suspension 1 spray INTRANASAL DAILY RF: 0 sertraline 50 mg Tablet 150 mg PO QAM RF: 0 omega 1-ggh-eyh-fish oil [Fish Oil] 1,000 mg (120 mg-180 mg) Capsule 1 cap PO BID RF: 0 Multi For Her 18 mg iron-600 mcg-40 mcg Capsule 1 tab-cap PO QAM RF: 0 cyclobenzaprine 5 mg Tablet 5 mg PO BID PRN (Reason: Muscle Pain) RF: 0 Trulicity 0.75 mg/0.5 mL Pen Injector 1 unit subcut WK RF: 0 coQ10 (ubiquinol) 100 mg Capsule 100 mg PO QPM RF: 0 Probiotic 3 billion cell Capsule 3,000 mmu cells PO BID RF: 0 cyanocobalamin (vitamin B-12) 1,000 mcg/mL Solution 100 mcg IM MONTHLY RF: 0 Discontinued meloxicam 15 mg Tablet 15 mg PO QAM RF: 0 aspirin [Aspirin Low Dose] 81 mg Tablet,Delayed Release (Dr/Ec) 81 mg PO QPM RF: 0 oxycodone-acetaminophen [Percocet] 5-325 mg Tablet 1 tab PO BID PRN (Reason: Pain) RF: 0 Discharge Orders: Discharge Order (Routine); Ordered 09/11/20 Ordered By: Richard Ramos/Other Patient Handouts: DVT Post Op Prevention, Managing Type 2 Diabetes Admission Data Admit Date/Time: 09/10/20 11:46 Attending Provider: Richard Thomas Admit Provider: Richard Thomas Primary Care Provider: Yelitza Urias Other Interventions: Discharge Summary Assessment (RN) Last Done: 09/11/20 13:32
[2020-09-11] MEDS ORDERED: metFORMIN HCL ER 500 MG TABCR PO SCH (17:00)
[2020-09-12] MEDS ORDERED: CeleBREX 200 MG CAP PO SCH (21:00)
== END 2020-09-11 15:21 | disposition home health service (06) ==
LOC: 3E 07:13 → ASU 07:13